=== PATIENT | female | born 1930 | race Caucasian/White ===

== ENCOUNTER 2018-01-25 11:14 | Inpatient (IN) | payer OTHER ==
[2018-01-25] MEDS ORDERED: Haloperidol Lactate 5 mg/mL 1mL Vial IM STA ×2 (11:28→13:57)
--- NOTE | 2018-01-25 11:34 | ED Physician Chart ---
ED Chief Complaint/HPI - Patient Information Date Seen:: 01/25/18 Time Seen:: 11:25 Chief Complaint:: Agitation History of Present Illness:: onset x 2 days of agitation and aggressive behavior; no report of trauma, SIs, LOC, AMS, ALOC, H/As, S/T, neck pain, C/P, SOB, Abd. Pain, A/N/V/D/C, fever, chills, or urinary s/s Historian:: Patient, Friend Review:: Nurse's Note Reviewed ED Review of Systems - Review of Systems General/Constitutional: No fever, No chills, No weight loss, No weakness, No diaphoresis, No edema, No loss of appetite Skin: No skin lesions, No rash, No bruising Head: No headache, No light-headedness Eyes: No loss of vision, No pain, No diplopia ENT: No earache, No nasal drainage, No sore throat, No tinnitus Neck: No neck pain, No swelling, No thyromegaly, No stiffness, No mass noted Cardio Vascular: No chest pain, No palpitations, No PND, No orthopnea, No edema Pulmonary: No SOB, No cough, No sputum, No wheezing GI: No nausea, No vomiting, No diarrhea, No pain, No melena, No hematochezia, No constipation, No hematemesis G/U: No dysuria, No frequency, No hematuria, No nacturia Office Support Clerk: No vaginal discharge, No abnormal vaginal bleed, No contraction Musculoskeletal: No bone or joint pain, No back pain, No muscle pain Endocrine: No polyuria, No polydipsia Psychiatric: Prior psych history, Depression, Anxiety, No suicidal ideation, No homicidal ideation, No auditory hallucination, No visual hallucination Hematopoietic: No bruising, No lymphadenopathy Allergic/Immuno: No urticaria, No angioedema Neurological: No syncope, No focal symptoms, No weakness, No paresthesia, No headache, No seizure, No dizziness, Confusion, No vertigo ED Past Medical History - Past Medical History Obtainable: Yes Past Medical History: HTN, Dyslipidemia Family History: HTN Social History: Non Smoker, No Alcohol, No Drug Use, , Lives Alone Surgical History: None Psychiatricy History: Depression, Bipolar, Dementia Medication: Reviewed Family Medical History - Family Member Mother History Unknown: Yes ED Physical Exam - Physical Examination General/Constitutional: Awake, Well-developed, well-nourished, Alert, No distress, GCS 15, Non-toxic appearing, Ambulatory Head: Atraumatic Eyes: Lids, conjuctiva normal, PERRL, EOMI Skin: Nl inspection, No rash, No skin lesions, No ecchymosis, Well hydrated, No lymphadenopathy ENMT: External ears, nose nl, TM canals nl, Nasal exam nl, Lips, teeth, gums nl , Oropharynx nl, Tonsils nl Neck: Nontender, Full ROM w/o pain, No JVD, No nuchal rigidity, No bruit, No mass, No stridor Respiratory: Nl effort/Exclusion, Clear to Auscultation, No Wheeze/Rhonchi/Rales Cardio Vascular: RRR, No murmur, gallop, rubs, NL S1 S2, Carotid/Femoral/Distal pulses equal bilaterally GI: No tenderness/rebounding/guarding, No organomegaly, No hernia, Normal BS's, Nondistended, No mass/bruits, No McBurney tenderness : No CVA tenderness Extremities: No tenderness or effusion, Full ROM, normal strength in all extremities, No edema, Normal digits & nails Neuro/Psych: Alert/oriented, DTR's symmetric, Normal sensory exam, Normal motor strength, Judgement/insight normal, Mood normal, Normal gait, No focal deficits Other Neuro/Psych comments:: Disoriented and Confused; + Psychomotor Agitation; no SIs; Mood/Affect: Labile Misc: Normal back, No paraspinal tenderness ED Labs/Radiology/EKG Results - Lab Results Comments:: Reviewed ED Septic Shock - . Is Septic Shock (SBP<90, OR Lactate>4 mmol\L) present?: No ED Reassessment (Disposition) - Reassessment Reassessment Condition:: Improved - Diagnosis Diagnosis:: Agitation; Psychosis; Medical Clearance; Dementia; Alzheimer's Disease - Aftercare/Follow up Instructions Aftercare/Follow-Up Instructions:: Counseled pt regarding lab results/diagnosis & need follow up, Counseled pt & family regarding lab results/diagnosis & need follow up - Patient Disposition Discharge/Transfer:: Acute Care w/in this hosp Accepting Physician:: Dr. Jaramillo Time Called:: 1330 Time Responded:: 13:30 Admitted to:: Med/Surg Spoke to:: Dr. Jaramillo Admitting Medical Physician:: Dr. Jaramillo Condition at Disposition:: Stable, Improved
[2018-01-25] MEDS ORDERED: Haloperidol Lactate 5 mg/mL 1mL Vial ONE ×2 (11:39→14:00)
[2018-01-25 12:51] LABS: % BASOPHILS 0.7 % (0.0-2.0); % EOSINOPHILS 0.8 % (0.0-5.0); % LYMPHOCYTES 19.2 % (20.0-50.0); % MONOCYTES 6.2 % (2.0-10.0); % NEUTROPHILS 73.1 % (40.0-80.0); BASOPHILE ABSOLUTE 0.1 Th/cumm (0-0.2); EOSINOPHILE ABSOLUTE 0.1 Th/cmm (0.1-0.4); HEMATOCRIT 39.5 % (41.0-60); HEMOGLOBIN 13.3 gm/dL (12-16); LYMPHOCYTE ABSOLUTE 1.5 Th/cmm (1.5-3.0); MEAN CELL VOLUME 91.1 fl (81-100); MEAN CORPUSCULAR HEMOGLOBIN 30.8 pg (27.0-31.0); MEAN CORPUSCULAR HGB CONC 33.8 pg (28.0-36.0); MEAN PLATELET VOLUME 8.9 fl; MONOCYTE ABSOLUTE 0.5 Th/cmm (0.3-1.0); NEUTROPHILE ABSOLUTE 5.4 Th/cmm (1.8-8.0); PLATELET COUNT 197 Th/cmm (150-400); RED BLOOD COUNT 4.34 Mil/cmm (3.80-5.20); RED CELL DISTRIBUTION WIDTH 13.1 % (11.5-20.0); WHITE BLOOD COUNT 7.6 Th/cmm (4.8-10.8)
[2018-01-25 13:19] LABS: ACETAMINOPHEN < 10.0 ug/mL (10.0-30.0); ALB/GLOB RATIO 1.4 (1.0-1.8); ALKALINE PHOSPHATASE 69 U/L (34-104); ANION GAP 11.5 (7.0-16.0); BILIRUBIN,TOTAL 0.7 mg/dL (0.3-1.0); BUN - UREA NITROGEN 15 mg/dL (7-25); CALCIUM SERUM 9.5 mg/dL (8.6-10.3); CARBON DIOXIDE 23.6 mEq/L (21.0-31.0); CHLORIDE 109 mEq/L (98-107); CHOLESTEROL 151 mg/dL (<200); CREATININE - SERUM 1.1 mg/dL (0.6-1.2); GLUCOSE 153 mg/dL (70-105); HDL -HIGH DENSITY LIPOPROTEIN 39 mg/dL (23-92); POTASSIUM SERUM 4.1 mEq/L (3.5-5.1); SALICYLATES (ASPIRIN) < 25.0 mg/L (30.0-100.0); SGOT 37 U/L (13-39); SGPT/ALT 20 U/L (7-52); SODIUM SERUM 140 mEq/L (136-145); TOTAL PROTEIN,SERUM 6.9 gm/dL (6.0-8.3); TRIGLYCERIDES 98 mg/dL (<150)
[2018-01-25] MEDS ORDERED: Maalox 30 mL Cup PO PRN (17:26)
[2018-01-25] MEDS ORDERED: Magnesium Hydroxide (MOM) 30 mL UDC PO PRN (17:26)
[2018-01-25 17:52] VITALS: BP 122/63
[2018-01-25 19:28] LABS: A1C % 6.2 % (4.0-6.0)
[2018-01-26] MEDS: Levothyroxine 0.1 Mg Tab PO SCH (08:55)
[2018-01-26] MEDS: Multivitamin Tab PO SCH (08:56)
--- NOTE | 2018-01-26 21:19 | History & Physical ---
ADMIT DATE: 01/25/2018 The patient was admitted to Geropsych Unit because of severe agitation. HISTORY OF PRESENT ILLNESS: Two-day-old history of problems including agitation and aggressive behavior. No history of trauma, no history of any other problem, was admitted to Geropsych Unit. REVIEW OF SYSTEMS: The patient has no system review. Otherwise, negative. PAST MEDICAL HISTORY: History of hypertension, hyperlipidemia. PHYSICAL EXAMINATION: GENERAL: Alert, oriented, aggressive female. HEAD: Normal. ENT: Normal. NECK: Supple, nontender. LUNGS: Clear. CARDIOVASCULAR SYSTEM: S1, S2 heard. ABDOMEN: Soft. Bowel sounds are heard. CENTRAL NERVOUS SYSTEM: The patient was disoriented, confused, and severe agitation. DIAGNOSES: Acute psychosis, history of hypertension, history of hyperlipidemia, history of dementia. PLAN: The patient is being admitted. I will follow the medical problems and Dr. [place] will follow the patient. JOB# [id number]
[2018-01-27] MEDS: Multivitamin Tab PO SCH (10:15)
[2018-01-27] MEDS: Levothyroxine 0.1 Mg Tab PO SCH (10:15)
--- NOTE | 2018-01-27 16:07 | General Progress Note ---
Subjective - Review of Systems Subjective: pt. is agitated, confused and has aggressive behavior Objective - Results Result Diagrams: 01/25/18 12:40 01/25/18 12:40 Recent Labs: Laboratory Last Values WBC 7.6 Th/cmm (4.8-10.8) 01/25/18 12:40 RBC 4.34 Mil/cmm (3.80-5.20) 01/25/18 12:40 Hgb 13.3 gm/dL (12-16) 01/25/18 12:40 Hct 39.5 % (41.0-60) L 01/25/18 12:40 MCV 91.1 fl (81-100) 01/25/18 12:40 MCH 30.8 pg (27.0-31.0) 01/25/18 12:40 MCHC Differential 33.8 pg (28.0-36.0) 01/25/18 12:40 RDW 13.1 % (11.5-20.0) 01/25/18 12:40 Plt Count 197 Th/cmm (150-400) 01/25/18 12:40 MPV 8.9 fl 01/25/18 12:40 Neutrophils % 73.1 % (40.0-80.0) 01/25/18 12:40 Lymphocytes % 19.2 % (20.0-50.0) L 01/25/18 12:40 Monocytes % 6.2 % (2.0-10.0) 01/25/18 12:40 Eosinophils % 0.8 % (0.0-5.0) 01/25/18 12:40 Basophils % 0.7 % (0.0-2.0) 01/25/18 12:40 Sodium 140 mEq/L (136-145) 01/25/18 12:40 Potassium 4.1 mEq/L (3.5-5.1) 01/25/18 12:40 Chloride 109 mEq/L (98-107) H 01/25/18 12:40 Carbon Dioxide 23.6 mEq/L (21.0-31.0) 01/25/18 12:40 Anion Gap 11.5 (7.0-16.0) 01/25/18 12:40 BUN 15 mg/dL (7-25) 01/25/18 12:40 Creatinine 1.1 mg/dL (0.6-1.2) 01/25/18 12:40 Est GFR ( Amer) TNP 01/25/18 12:40 Est GFR (Non-Af Amer) TNP 01/25/18 12:40 BUN/Creatinine Ratio 13.6 01/25/18 12:40 Glucose 153 mg/dL (70-105) H 01/25/18 12:40 Hemoglobin A1c % 6.2 % (4.0-6.0) H 01/25/18 12:40 Calcium 9.5 mg/dL (8.6-10.3) 01/25/18 12:40 Total Bilirubin 0.7 mg/dL (0.3-1.0) 01/25/18 12:40 AST 37 U/L (13-39) 01/25/18 12:40 ALT 20 U/L (7-52) 01/25/18 12:40 Alkaline Phosphatase 69 U/L (34-104) 01/25/18 12:40 Troponin I 0.01 ng/mL (0.01-0.05) 01/25/18 12:40 Total Protein 6.9 gm/dL (6.0-8.3) 01/25/18 12:40 Albumin 4.0 gm/dL (3.7-5.3) 01/25/18 12:40 Globulin 2.9 gm/dL 01/25/18 12:40 Albumin/Globulin Ratio 1.4 (1.0-1.8) 01/25/18 12:40 Triglycerides 98 mg/dL (<150) 01/25/18 12:40 Cholesterol 151 mg/dL (<200) 01/25/18 12:40 LDL Cholesterol Direct 96 mg/dL (75-193) 01/25/18 12:40 HDL Cholesterol 39 mg/dL (23-92) 01/25/18 12:40 TSH 1.22 uIU/ml (0.34-5.60) 01/25/18 12:40 Salicylates < 25.0 mg/L (30.0-100.0) L 01/25/18 12:40 Acetaminophen < 10.0 ug/mL (10.0-30.0) L 01/25/18 12:40 Ethyl Alcohol < 10 mg/dL (0-10) 01/25/18 12:40 - Physical Exam Vitals and I&O: Vital Signs Temp 98.7 F 01/26/18 20:20 Pulse 95 01/26/18 20:20 Resp 18 01/26/18 20:20 BP 134/91 01/26/18 20:20 Pulse Ox 97 01/26/18 20:20 Intake & Output 01/26/18 01/27/18 01/27/18 18:59 06:59 18:59 Intake Total 700 Balance 700 Intake: Oral 700 Other: # Voids 2 # Bowel Movements 0 Active Medications: Current Medications Acetaminophen (Tylenol) 650 mg PO Q4HR PRN PRN Reason: Mild Pain / Temp above 100 Stop: 03/26/18 17:25 Al Hydrox/Mg Hydrox/Simethicone (Maalox) 30 ml PO Q4HR PRN PRN Reason: GI DISTRESS Stop: 03/26/18 17:25 Levothyroxine Sodium (Synthroid) 0.1 mg PO DAILY ISRA Stop: 03/27/18 08:59 Last Admin: 01/27/18 10:15 Dose: 0.1 mg Lorazepam (Ativan) 0.5 mg PO Q4HR PRN; Protocol PRN Reason: Anxiety Stop: 02/24/18 17:25 Lorazepam (Ativan) 0.25 mg PO Q8HR PRN; Protocol PRN Reason: Agitation Stop: 03/27/18 20:33 Magnesium Hydroxide (Milk Of Magnesia) 30 ml PO HS PRN PRN Reason: Constipation Multivitamins/Vitamin C (Theragran) 1 tab PO DAILY ISRA Stop: 03/27/18 08:59 Last Admin: 01/27/18 10:15 Dose: 1 tab Quetiapine Fumarate (Seroquel) 50 mg PO BID ISRA; Protocol Stop: 03/27/18 19:59 Last Admin: 01/27/18 10:15 Dose: 50 mg Zolpidem Tartrate (Ambien) 5 mg PO HS PRN PRN Reason: Insomnia Stop: 03/26/18 17:25 General: Alert, Oriented x3, No acute distress HEENT: Atraumatic, PERRLA, EOMI Neck: Supple Cardiovascular: Regular rate Lungs: Clear to auscultation Abdomen: Bowel sounds Assessment/Plan - Assessment Assessment: acute psychosis HTN HLD Dementia - Plan Plan: cpm will monitor
[2018-01-28 08:51] LABS: % BASOPHILS 0.1 % (0.0-2.0); % EOSINOPHILS 0.4 % (0.0-5.0); % LYMPHOCYTES 9.2 % (20.0-50.0); % MONOCYTES 5.8 % (2.0-10.0); % NEUTROPHILS 84.5 % (40.0-80.0); HEMATOCRIT 45.4 % (41.0-60); HEMOGLOBIN 14.9 gm/dL (12-16); MEAN CELL VOLUME 91.1 fl (81-100); MEAN CORPUSCULAR HEMOGLOBIN 29.8 pg (27.0-31.0); MEAN CORPUSCULAR HGB CONC 32.8 pg (28.0-36.0); MEAN PLATELET VOLUME 9.5 fl; MONOCYTE ABSOLUTE 0.6 Th/cmm (0.3-1.0); NEUTROPHILE ABSOLUTE 9.2 Th/cmm (1.8-8.0); PLATELET COUNT 216 Th/cmm (150-400); RED BLOOD COUNT 4.99 Mil/cmm (3.80-5.20); RED CELL DISTRIBUTION WIDTH 13.2 % (11.5-20.0); WHITE BLOOD COUNT 10.8 Th/cmm (4.8-10.8)
[2018-01-28 09:01] LABS: ALB/GLOB RATIO 1.3 (1.0-1.8); ALBUMIN 4.1 gm/dL (3.7-5.3); ALKALINE PHOSPHATASE 74 U/L (34-104); ANION GAP 14.2 (7.0-16.0); BILIRUBIN,TOTAL 1.2 mg/dL (0.3-1.0); BUN - UREA NITROGEN 19 mg/dL (7-25); CALCIUM SERUM 9.5 mg/dL (8.6-10.3); CARBON DIOXIDE 22.6 mEq/L (21.0-31.0); CHLORIDE 106 mEq/L (98-107); CREATININE - SERUM 0.8 mg/dL (0.6-1.2); GLUCOSE 135 mg/dL (70-105); POTASSIUM SERUM 3.8 mEq/L (3.5-5.1); SGOT 58 U/L (13-39); SGPT/ALT 33 U/L (7-52); SODIUM SERUM 139 mEq/L (136-145); TOTAL PROTEIN,SERUM 7.3 gm/dL (6.0-8.3)
[2018-01-28] MEDS: Levothyroxine 0.1 Mg Tab PO SCH (10:05)
[2018-01-28] MEDS: Multivitamin Tab PO SCH (10:06)
--- NOTE | 2018-01-28 17:30 | Progress Notes ---
DATE: 01/28/[address] Zhong. This is an 87-year-old female who was admitted on 01/25/2018 because of psychosis. The patient is a poor historian. The patient is unable to participate in meaningful conversation or make safe plan for self-care. She is unpredictable, impulsive, internally preoccupied, compliant with the medication, no side effects to Remeron 7.5 mg at bedtime and Seroquel 50 mg twice a day with no side effects, no sedation, no nausea and then Remeron was added to her by Dr. Zhong and we will continue outpatient group therapy, milieu therapy, and adjust medication as needed. JOB# [id number]
--- NOTE | 2018-01-28 19:51 | Consultation ---
DATE OF CONSULTATION: 01/28/2018 REASON FOR CONSULTATION: Increased agitation and refusing to eat. REQUESTING PHYSICIAN: Dr. Jaramillo. HISTORY OF PRESENT ILLNESS: This is an 87-year-old female with dementia and history of psychosis who presents to the Geropsych Unit because of severe agitation. The patient has had several days of problems including agitation and aggressive behavior. She is currently very calm and has been refusing apparently to eat her food. She did actually start to eat some food today. She does not attest to why she is having any issues with eating. She is otherwise fairly somnolent and not responding to many questions. She has evidence of chocolate pudding that was eaten earlier today around her mouth. She is not cachectic and she is on the flip side morbidly obese. PAST MEDICAL HISTORY: History of hypertension and hyperlipidemia. PAST SURGICAL HISTORY: The patient has no system review otherwise negative. ALLERGIES: None known. FAMILY HISTORY: Unobtainable given current state. SOCIAL HISTORY: Unobtainable given current state. PHYSICAL EXAMINATION: GENERAL: She is alert and oriented. HEENT: Normocephalic, atraumatic. PERRLA positive. LUNGS: Clear bilaterally. No wheezes, rales, or rhonchi. ABDOMEN: Soft, obese, nontender. Bowel sounds were positive. EXTREMITIES: Show no lower extremity edema. LABORATORY DATA: Hemoglobin 14.9, white count of 10.8, and platelet count of 216. Chemistry panel was within normal limits. AST is 58, ALT is 33. IMAGING: Reviewed. ASSESSMENT AND PLAN: This is an 87-year-old female admitted to the Geropsych Unit for aggressive behavior. 1. Inability to eat well. 2. Psychosis and agitation. 3. Morbid obesity. We will continue to recommend treating the patient's underlying psychiatric condition and encouraged alongside with the nurses that the patient should continue to keep eating. She seems to have good family support, which is important in her overall prognosis. Would recommend continue with conservative management at this point. If the patient was starting to have severe protein-calorie malnutrition down the road, please ask for and consults with the family and we would be happy to consider PEG tube placement at that time. Do not foresee PEG tube placement; however, at this time and would just recommend continue with ongoing therapy. Thank you for this consultation. JOB# [id number]
--- NOTE | 2018-01-29 22:29 | Progress Notes ---
DATE: 01/27/2018 SUBJECTIVE: Chart reviewed and the patient interviewed. Also, discussed the patient's condition with the staff and reviewed records and labs. The patient is still confused and the patient is still agitated. The patient also still needs lots of redirections. The patient also is still little ____. She is still in angry mood. Otherwise, the patient is compliant with taking medications and the patient started on Seroquel with no side effects. ASSESSMENT: The patient is still agitated and confused and needs lots of redirections. TREATMENT PLAN: Continue to monitor her behavior closely. Also continue adjusting psychotropic medications. Also, discussed with his insurance company discharge plans and also placement issue. Also, we will continue to work on her behavior modification as well as placement issue. JOB# [id number]
--- NOTE | 2018-01-31 10:48 | Psychiatric Evaluation ---
DATE OF SERVICE: PSYCHIATRIC INITIAL EVALUATION AND MENTAL STATUS EXAMINATION AGE: 87. SEX: Female. PHYSICIAN: Liss Zhong M.D., M.P.H. CHIEF COMPLAINT: Agitation and irritability. HISTORY OF PRESENT ILLNESS: The patient is an 87-year-old female who has been under the care of Dr. Madison Avendano in [place]. The patient was sent to the hospital by Dr. Avendano and asked to be under my care. The patient came from her home. The patient has been easily agitated and confused and has been having disorganized thoughts. The patient also has been suspicious and ____ and agitated. The patient also ____. The patient also ____. The patient also has been aggressive and has been having difficulty following any of the directions. The patient has been having those problems that increased during the last 2 days prior to her admission. The patient claims to have history of dementia and forgetfulness ____. PAST PSYCHIATRIC HISTORY: The patient has history of ____ psychiatric issues. The patient is not taking any psychotropic medication at this time. PAST MEDICAL HISTORY: The patient has history of hypertension and ____. She has been under the care of Dr. Madison Avendano. The patient was medically cleared in the Emergency Room. FAMILY PSYCHIATRIC AND MEDICAL PROBLEMS: The patient has history of hypertension in the family. SOCIAL HISTORY: Reveals that the patient is and lives at home. ALLERGIES: No known allergies. MENTAL STATUS EXAMINATION: The patient appears her stated age. Anxious. Irritable mood. Seems to be suspicious and seems to be slightly paranoid. The patient did not answer questions regarding hallucinations or delusions, but seems to be actively responding and agitated and talking to self. The patient denied suicidal or homicidal ideations. The patient is alert, but she is confused and seems to be disoriented to time, place, person and situation. Impaired immediate and recent memory, but intact remote memory and she is able to remember her date. Poor insight and poor judgment. ASSESSMENT: PRIMARY DIAGNOSIS: Unspecified psychosis. SECONDARY DIAGNOSES: Dementia, moderate to severe, with psychosis and behavioral disturbances. MEDICAL DIAGNOSES: 1. Hypertension. 2. ____. TREATMENT PLAN: We will monitor the patient's behavior and condition closely. Also, we will start the patient on Seroquel and ____. ESTIMATED LENGTH OF STAY: 5-7 days. THE PATIENT'S STRENGTHS AND WEAKNESSES: The patient strengths are not clear at this time except that she seems to be in a relatively fair health. Weaknesses are ineffective coping and poor impulse control and her confusion and forgetfulness. AFTER DISCHARGE PLAN: The patient seems to be needed to be placed in a dementia unit. Outpatient treatment and followup will continue as outpatient. CRITERIA FOR DISCHARGE: The patient will not be as agitated or confused and will stabilize psychotropic medications and will establish placement and treatment plans. JOB# [id number]
== END 2018-01-28 23:17 | disposition short-term general hospital (02) | DRG 885 ==
LOC: ER 11:14 → EDBD 11:14 → GERO 16:01
PROVIDERS: ADMIT Psychiatry & Neurology Psychiatry; ATTEND Psychiatry & Neurology Psychiatry
DX: F23 Brief psychotic disorder (principal); F02.81 Dementia in other diseases classified elsewhere, unspecified severity, with behavioral disturbance; I10 Essential (primary) hypertension; E78.5 Hyperlipidemia, unspecified; F31.9 Bipolar disorder, unspecified; Z60.2 Problems related to living alone; R13.0 Aphagia; G30.9 Alzheimer's disease, unspecified; E66.01 Morbid (severe) obesity due to excess calories; Z68.27 Body mass index [BMI] 27.0-27.9, adult; Z82.49 Family history of ischemic heart disease and other diseases of the circulatory system
CPT/HCPCS: 36415-UA; 80053-TC; 80061-TC; 80320-TC; 80329-TC; 83036-90; 84443-TC; 84484-TC; 85025-TC; 86592-TC; J1200; J1630; J2060; Z7610

== ENCOUNTER 2018-01-28 23:00 | Inpatient (IN) | payer OTHER ==
[2018-01-29 01:17] VITALS: BP 154/78
[2018-01-29] MEDS: D5-0.45NS 1,000 ML IV SCH ×2 (06:44→17:47)
[2018-01-29 07:32] LABS: % BASOPHILS 0.8 % (0.0-2.0); % LYMPHOCYTES 12.1 % (20.0-50.0); % MONOCYTES 9.5 % (2.0-10.0); % NEUTROPHILS 76.6 % (40.0-80.0); BASOPHILE ABSOLUTE 0.1 Th/cumm (0-0.2); EOSINOPHILE ABSOLUTE 0.1 Th/cmm (0.1-0.4); HEMOGLOBIN 13.7 gm/dL (12-16); MEAN CELL VOLUME 89.6 fl (81-100); MEAN CORPUSCULAR HEMOGLOBIN 30.5 pg (27.0-31.0); MONOCYTE ABSOLUTE 0.8 Th/cmm (0.3-1.0); NEUTROPHILE ABSOLUTE 6.5 Th/cmm (1.8-8.0); PLATELET COUNT 199 Th/cmm (150-400); RED BLOOD COUNT 4.51 Mil/cmm (3.80-5.20)
[2018-01-29 07:41] LABS: HEMATOCRIT 40.4 % (41.0-60); WHITE BLOOD COUNT 8.5 Th/cmm (4.8-10.8)
[2018-01-29] MEDS ORDERED: Magnesium Hydroxide (MOM) 30 mL UDC PO PRN (07:46)
[2018-01-29] MEDS ORDERED: Maalox 30 mL Cup PO PRN (07:46)
[2018-01-29 07:52] LABS: ANION GAP 10.2 (7.0-16.0); BUN - UREA NITROGEN 20 mg/dL (7-25); CARBON DIOXIDE 24.2 mEq/L (21.0-31.0); CHLORIDE 111 mEq/L (98-107); CREATININE - SERUM 0.7 mg/dL (0.6-1.2); GLUCOSE 121 mg/dL (70-105); POTASSIUM SERUM 3.4 mEq/L (3.5-5.1); SODIUM SERUM 142 mEq/L (136-145)
[2018-01-29] MEDS: Levothyroxine 0.1 Mg Tab PO SCH (09:41)
[2018-01-29] MEDS: Multivitamin Tab PO SCH (09:41)
--- NOTE | 2018-01-29 10:23 | GI Progress Note ---
Subjective - Review of Systems Service Date: 01/29/18 Subjective: Pt appears to be refusing food Objective - Results Result Diagrams: 01/29/18 06:56 01/29/18 06:56 Recent Labs: Laboratory Last Values WBC 8.5 Th/cmm (4.8-10.8) D 01/29/18 06:56 RBC 4.51 Mil/cmm (3.80-5.20) 01/29/18 06:56 Hgb 13.7 gm/dL (12-16) 01/29/18 06:56 Hct 40.4 % (41.0-60) L D 01/29/18 06:56 MCV 89.6 fl (81-100) 01/29/18 06:56 MCH 30.5 pg (27.0-31.0) 01/29/18 06:56 MCHC Differential 34.0 pg (28.0-36.0) 01/29/18 06:56 RDW 13.0 % (11.5-20.0) 01/29/18 06:56 Plt Count 199 Th/cmm (150-400) 01/29/18 06:56 MPV 9.0 fl 01/29/18 06:56 Neutrophils % 76.6 % (40.0-80.0) 01/29/18 06:56 Lymphocytes % 12.1 % (20.0-50.0) L 01/29/18 06:56 Monocytes % 9.5 % (2.0-10.0) 01/29/18 06:56 Eosinophils % 1.0 % (0.0-5.0) 01/29/18 06:56 Basophils % 0.8 % (0.0-2.0) 01/29/18 06:56 Sodium 142 mEq/L (136-145) 01/29/18 06:56 Potassium 3.4 mEq/L (3.5-5.1) L 01/29/18 06:56 Chloride 111 mEq/L (98-107) H 01/29/18 06:56 Carbon Dioxide 24.2 mEq/L (21.0-31.0) 01/29/18 06:56 Anion Gap 10.2 (7.0-16.0) 01/29/18 06:56 BUN 20 mg/dL (7-25) 01/29/18 06:56 Creatinine 0.7 mg/dL (0.6-1.2) 01/29/18 06:56 Est GFR ( Amer) TNP 01/29/18 06:56 Est GFR (Non-Af Amer) TNP 01/29/18 06:56 BUN/Creatinine Ratio 28.6 01/29/18 06:56 Glucose 121 mg/dL (70-105) H 01/29/18 06:56 POC Glucose 137 MG/DL (70 - 105) H 01/29/18 05:20 Calcium 9.0 mg/dL (8.6-10.3) 01/29/18 06:56 - Physical Exam Vitals and I&O: Vital Signs Temp 97.7 F 01/29/18 08:08 Pulse 93 01/29/18 08:08 Resp 18 01/29/18 08:08 BP 135/63 01/29/18 08:08 Pulse Ox 89 01/29/18 08:08 Intake & Output 01/28/18 01/29/18 01/29/18 18:59 06:59 18:59 Intake Total 0 Output Total 1 Balance -1 Weight (lbs) 80.286 kg Intake: Oral 0 Output: Urine 1 Other: Weight Source Bedscale Active Medications: Current Medications Acetaminophen (Tylenol) 650 mg PO Q4HR PRN PRN Reason: Mild Pain / Temp above 100 Stop: 03/30/18 07:45 Al Hydrox/Mg Hydrox/Simethicone (Maalox) 30 ml PO Q4HR PRN PRN Reason: GI DISTRESS Stop: 03/30/18 07:45 Dextrose/Sodium Chloride (D5-0.45ns) 1,000 mls @ 100 mls/hr IV .Q10H ISRA Stop: 03/30/18 06:29 Last Admin: 01/29/18 06:44 Dose: 100 mls/hr Levothyroxine Sodium (Synthroid) 0.1 mg PO QDAC ISRA Stop: 03/30/18 08:59 Last Admin: 01/29/18 09:41 Dose: 0.1 mg Lorazepam (Ativan) 0.25 mg PO Q8HR PRN; Protocol PRN Reason: Agitation Stop: 03/30/18 07:45 Magnesium Hydroxide (Milk Of Magnesia) 30 ml PO HS PRN PRN Reason: Constipation Stop: 03/30/18 07:45 Mirtazapine (Remeron) 7.5 mg PO HS ISRA; Protocol Stop: 03/30/18 20:59 Multivitamins/Vitamin C (Theragran) 1 tab PO DAILY ISRA Stop: 03/30/18 08:59 Last Admin: 01/29/18 09:41 Dose: 1 tab Quetiapine Fumarate (Seroquel) 50 mg PO BID ISRA; Protocol Stop: 03/30/18 08:59 Zolpidem Tartrate (Ambien) 5 mg PO HS PRN PRN Reason: Insomnia Stop: 03/30/18 07:45 General: Mild distress HEENT: Atraumatic, EOMI Cardiovascular: Regular rate, Normal S1, Normal S2 Lungs: Clear to auscultation Abdomen: Bowel sounds Assessment/Plan - Assessment Assessment: 1. Psychosis 2. Refusal to eat 3. Nausea -Trial of Reglan -Swallow study tomorrow if does not eat today -WIll follow
--- NOTE | 2018-01-29 12:22 | History & Physical ---
ADMIT DATE: 01/29/2018 CHIEF COMPLAINT: Failure to thrive. HISTORY OF PRESENT ILLNESS: This is an 87-year-old female who was admitted originally from a psychiatric unit transferred to the medical unit due to failure to thrive and decreased urine output. REVIEW OF SYSTEMS: GENERAL: This is an 87-year-old female, appears as stated. Positive weakness. No fever. HEENT: Head: No headache. No dizziness. Eyes: No eye pain. No blurring of vision. NECK: No neck pain. No nuchal rigidity. CHEST: No chest pain. No palpitation. PULMONARY: No shortness of breath. No coughing. GASTROINTESTINAL: No diarrhea. No constipation. No abdominal pain. MUSCULOSKELETAL: No joint pain. No muscle pain. SOCIAL HISTORY: The patient lives in a detention facility prior to hospitalization. FAMILY HISTORY: Unremarkable. PAST SURGICAL HISTORY: Unremarkable. PAST MEDICAL HISTORY: Includes psychosis, hypertension, hypothyroidism. PHYSICAL EXAMINATION: VITAL SIGNS: Temperature 97.7, heart rate 93, blood pressure 135/63, respiration of 18, 97% on room air. HEENT: Head is atraumatic, normocephalic. Eyes: Bilateral conjunctivae are clear. Bilateral pupils equal, round and reactive. NECK: Supple. No JVD. CARDIOVASCULAR: S1 and S2, without murmur. PULMONARY: Clear to auscultation. GASTROINTESTINAL: Soft and nontender without guarding. Positive bowel sounds. MUSCULOSKELETAL: No clubbing. No cyanosis noted. ASSESSMENT: 1. Failure to thrive. 2. Hypertension. 3. Hypothyroidism. 4. Osteoarthritis. 5. Psychosis. PLAN: We will start IV fluids for the patient. We will consult with the GI and drier attendant. We will also do a swallow evaluation and we will do medication reconciliation accordingly. Treatment plans were discussed with the patient's nurse. Treatment plans were discussed with Dr. Jaramillo. JOB# [id number]
[2018-01-29] MEDS: Metoclopramide 5 mg/mL 2mL Vial IVP SCH ×2 (12:37→20:46)
[2018-01-29] MEDS ORDERED: Potassium Chloride 20 mEq ER Tab PO ONE (15:27)
--- NOTE | 2018-01-29 23:38 | Consultation ---
DATE OF CONSULTATION: 01/29/2018 REASON FOR CONSULTATION: For electrolyte imbalance and for fluid management. HISTORY OF PRESENT ILLNESS: This is an 87-year-old female with past medical history of psychosis who was admitted because of failure to thrive. A few days prior to transfer, the patient's oral intake had gradually declined while at [facility]. She had refused to eat and drink. A few hours prior to transfer, she became quite weak. Urine output had diminished. She was then transferred to [facility]. She had no history of nausea and vomiting, no diarrhea. No history of dysphagia. PAST MEDICAL HISTORY: 1. Psychosis. 2. Essential hypertension. 3. Hypothyroidism. CURRENT MEDICATIONS: She is currently on acetaminophen, clonidine, Synthroid, Ativan, metoclopramide, Remeron, multivitamins, quetiapine, and zolpidem. ALLERGIES: No known drug allergies. SOCIAL AND FAMILY HISTORY: I was not able to obtain directly from the patient because she is unable to comprehend my questions and not able to give adequate responses. REVIEW OF SYSTEMS: Again, I was not able to decipher this directly from the patient because of her current mental status. PHYSICAL EXAMINATION: GENERAL: The patient is awake, not in any form of distress. VITAL SIGNS: Blood pressure is 128/59, pulse 74, and temperature 97.9 degrees. SKIN: Good turgor, warm, no rash, no jaundice appreciated. HEENT: Head normocephalic, atraumatic. Eyes: Extraocular muscles intact. Pupils equal, round, reactive to light and accommodates. Anicteric sclerae. Pale conjunctivae. Nose: Midline nasal septum. Mouth: Dry mucosa. Poor dentition. NECK: Supple, no adenopathy, no thyromegaly, no bruits. Trachea palpated in the midline. CHEST AND CARDIOVASCULAR: S1, S2. No rub nor murmur appreciated. Point of maximal impulse fifth intercostal space, left midclavicular line. No abdominal or femoral bruits appreciated. LUNGS: Equal expansion, no use of accessory muscles. No supraclavicular retractions. Decreased breath sounds, clear to auscultation without any wheeze. ABDOMEN: Flat, soft, positive for bowel sounds. No bruits either diastolic or systolic. RECTAL: Lax sphincter tone. GENITOURINARY: Normal appearing female genitalia. MUSCULOSKELETAL: No effusions present in her joints, but unable to assess her range of motion. EXTREMITIES: No evidence of edema, cyanosis, nor clubbing with palpable femoral, popliteal, and dorsalis pedis pulses. NEUROLOGIC: As mentioned, the patient is awake, but nonverbal at the present time, so I was not able to pursue further my neuro exam. LABORATORY DATA AND STUDIES: Did reveal white count 8.5, hemoglobin 13.7, hematocrit 40.4, platelets 199, and polys 76.6%. Sodium 142, potassium 3.4, chloride 111, bicarbonate 24, BUN 20, creatinine 0.7, glucose 121, calcium 9. IMPRESSION: 1. Hypokalemia. 2. Psychosis. 3. Failure to thrive with the diminished oral intake. 4. Essential hypertension. 5. Hypothyroidism. 6. Low urine output, likely secondary to failure to thrive. PLAN: 1. Urinalysis. 2. Urine spot sodium. 3. Renal/bladder ultrasound. 4. Initiate IV hydration. 5. Replace potassium. 6. Follow up electrolytes and magnesium. 7. Encourage p.o. intake, both solids and liquids. 8. Continue with psych meds. Thank you, Dr. Jaramillo for this consult. We will follow the patient closely with you. JOB# [id number]
[2018-01-30] MEDS: D5-0.45NS 1,000 ML IV SCH ×3 (03:58→13:22)
[2018-01-30] MEDS: Metoclopramide 5 mg/mL 2mL Vial IVP SCH ×3 (04:41→21:55)
[2018-01-30] MEDS: Levothyroxine 0.1 Mg Tab PO SCH (08:05)
[2018-01-30 08:20] LABS: ALB/GLOB RATIO 1.2 (1.0-1.8); ALBUMIN 3.3 gm/dL (3.7-5.3); ALKALINE PHOSPHATASE 58 U/L (34-104); ANION GAP 10.8 (7.0-16.0); BILIRUBIN,TOTAL 1.3 mg/dL (0.3-1.0); BUN - UREA NITROGEN 13 mg/dL (7-25); CALCIUM SERUM 8.7 mg/dL (8.6-10.3); CARBON DIOXIDE 23.5 mEq/L (21.0-31.0); CHLORIDE 107 mEq/L (98-107); CREATININE - SERUM 0.6 mg/dL (0.6-1.2); GLUCOSE 168 mg/dL (70-105); MAGNESIUM 1.8 mg/dL (1.9-2.7); POTASSIUM SERUM 3.3 mEq/L (3.5-5.1); SGOT 42 U/L (13-39); SGPT/ALT 30 U/L (7-52); SODIUM SERUM 138 mEq/L (136-145); TOTAL PROTEIN,SERUM 6.1 gm/dL (6.0-8.3); URIC ACID 4.7 mg/dL (2.3-6.6)
[2018-01-30] MEDS: Multivitamin Tab PO SCH (09:45)
--- NOTE | 2018-01-30 10:02 | Diagnostic Imaging Report ---
Exam: Ultrasound summation kidneys. HISTORY: Decreased output Findings: Real-time ultrasound exam of the kidneys performed multiple planes. The study extremely limited. The right kidney measures 9.5 x 3.5 x 4.7 cm. The left kidney measures 10.6 x 4 x 4.4 cm. Grossly there is no evidence of obstructive uropathy or nephrolithiasis. The uterine bladder is distended with the patient unable to void. IMPRESSION: Extremely limited examination of kidneys due to patient body habitus. No evidence of obstructive uropathy or nephrolithiasis. Distended urinary bladder patient is not able to void spontaneously Clinical correlation recommended.
--- NOTE | 2018-01-30 11:41 | General Progress Note ---
Subjective - Review of Systems Events since last encounter: patient admitted with failure to thrive patient awake and alert Objective - Results Result Diagrams: 01/29/18 06:56 01/30/18 07:40 Recent Labs: Laboratory Last Values WBC 8.5 Th/cmm (4.8-10.8) D 01/29/18 06:56 RBC 4.51 Mil/cmm (3.80-5.20) 01/29/18 06:56 Hgb 13.7 gm/dL (12-16) 01/29/18 06:56 Hct 40.4 % (41.0-60) L D 01/29/18 06:56 MCV 89.6 fl (81-100) 01/29/18 06:56 MCH 30.5 pg (27.0-31.0) 01/29/18 06:56 MCHC Differential 34.0 pg (28.0-36.0) 01/29/18 06:56 RDW 13.0 % (11.5-20.0) 01/29/18 06:56 Plt Count 199 Th/cmm (150-400) 01/29/18 06:56 MPV 9.0 fl 01/29/18 06:56 Neutrophils % 76.6 % (40.0-80.0) 01/29/18 06:56 Lymphocytes % 12.1 % (20.0-50.0) L 01/29/18 06:56 Monocytes % 9.5 % (2.0-10.0) 01/29/18 06:56 Eosinophils % 1.0 % (0.0-5.0) 01/29/18 06:56 Basophils % 0.8 % (0.0-2.0) 01/29/18 06:56 Sodium 138 mEq/L (136-145) 01/30/18 07:40 Potassium 3.3 mEq/L (3.5-5.1) L 01/30/18 07:40 Chloride 107 mEq/L (98-107) 01/30/18 07:40 Carbon Dioxide 23.5 mEq/L (21.0-31.0) 01/30/18 07:40 Anion Gap 10.8 (7.0-16.0) 01/30/18 07:40 BUN 13 mg/dL (7-25) 01/30/18 07:40 Creatinine 0.6 mg/dL (0.6-1.2) 01/30/18 07:40 Est GFR ( Amer) TNP 01/30/18 07:40 Est GFR (Non-Af Amer) TNP 01/30/18 07:40 BUN/Creatinine Ratio 21.7 01/30/18 07:40 Glucose 168 mg/dL (70-105) H 01/30/18 07:40 POC Glucose 137 MG/DL (70 - 105) H 01/29/18 05:20 Uric Acid 4.7 mg/dL (2.3-6.6) 01/30/18 07:40 Calcium 8.7 mg/dL (8.6-10.3) 01/30/18 07:40 Magnesium 1.8 mg/dL (1.9-2.7) L 01/30/18 07:40 Total Bilirubin 1.3 mg/dL (0.3-1.0) H 01/30/18 07:40 AST 42 U/L (13-39) H 01/30/18 07:40 ALT 30 U/L (7-52) 01/30/18 07:40 Alkaline Phosphatase 58 U/L (34-104) 01/30/18 07:40 Total Protein 6.1 gm/dL (6.0-8.3) 01/30/18 07:40 Albumin 3.3 gm/dL (3.7-5.3) L 01/30/18 07:40 Globulin 2.8 gm/dL 01/30/18 07:40 Albumin/Globulin Ratio 1.2 (1.0-1.8) 01/30/18 07:40 Prealbumin 11 mg/dL (9-32) 01/29/18 06:56 - Physical Exam Vitals and I&O: Vital Signs Temp 98.8 F 01/30/18 08:05 Pulse 75 01/30/18 08:05 Resp 18 01/30/18 08:05 BP 160/74 01/30/18 08:05 Pulse Ox 95 01/30/18 08:05 Intake & Output 01/29/18 01/30/18 01/30/18 18:59 06:59 18:59 Intake Total 1080 1000 Balance 1080 1000 Weight (lbs) 80.286 kg 80.286 kg Intake: Intake, IV Amount 1000 1000 D5-0.45NS 1,000 ml @ 100 1000 1000 mls/hr IV .Q10H ISRA Rx#: [id number] Oral 80 Other: # Voids 2 2 # Bowel Movements 0 0 Weight Source Bedscale Bedscale Active Medications: Current Medications Acetaminophen (Tylenol) 650 mg PO Q4HR PRN PRN Reason: Mild Pain / Temp above 100 Stop: 03/30/18 07:45 Al Hydrox/Mg Hydrox/Simethicone (Maalox) 30 ml PO Q4HR PRN PRN Reason: GI DISTRESS Stop: 03/30/18 07:45 Dextrose/Sodium Chloride (D5-0.45ns) 1,000 mls @ 100 mls/hr IV .Q10H ISRA Stop: 03/30/18 06:29 Last Admin: 01/30/18 03:58 Dose: 100 mls/hr Levothyroxine Sodium (Synthroid) 0.1 mg PO QDAC ISRA Stop: 03/30/18 08:59 Last Admin: 01/30/18 08:05 Dose: 0.1 mg Lorazepam (Ativan) 0.25 mg PO Q8HR PRN; Protocol PRN Reason: Agitation Stop: 03/30/18 07:45 Last Admin: 01/30/18 09:40 Dose: 0.25 mg Magnesium Hydroxide (Milk Of Magnesia) 30 ml PO HS PRN PRN Reason: Constipation Stop: 03/30/18 07:45 Metoclopramide HCl (Reglan) 5 mg IVP Q8HR ISRA Stop: 03/30/18 12:59 Last Admin: 01/30/18 04:41 Dose: 5 mg Mirtazapine (Remeron) 7.5 mg PO HS ISRA; Protocol Stop: 03/30/18 20:59 Last Admin: 01/29/18 20:45 Dose: 7.5 mg Multivitamins/Vitamin C (Theragran) 1 tab PO DAILY ISRA Stop: 03/30/18 08:59 Last Admin: 01/30/18 09:45 Dose: 1 tab Quetiapine Fumarate (Seroquel) 50 mg PO BID ISRA; Protocol Stop: 03/30/18 08:59 Last Admin: 01/30/18 09:45 Dose: 50 mg Zolpidem Tartrate (Ambien) 5 mg PO HS PRN PRN Reason: Insomnia Stop: 03/30/18 07:45 General: Mild distress HEENT: Atraumatic, EOMI Cardiovascular: Regular rate, Normal S1, Normal S2 Lungs: Clear to auscultation Abdomen: Bowel sounds Nutritional Asmnt/Malnutr-PDOC - Dietary Evaluation Malnutrition Findings (Please click <Entered> for more info): Nutritional Asmnt/Malnutrition Start: 01/29/18 13: 31 Text: Status: Complete Freq: Protocol: Document 01/29/18 13:31 ELOISA (Rec: 01/29/18 13:36 ELOISA MATEUSZ- [email or web address]) Nutritional Asmnt/Malnutrition Patient General Information Diagnosis failure to thrive, Pertinent Medical Hx/Surgical Hx no H&P completed as of 01/29 @ 1331 Subjective Information Pt sitting up in bed did not answer RD questions at time of visit Current Diet Order/ Nutrition Support regular Pertinent Medications maalox, D51/2NS @100ml/hr (2. 4L/day 408kcals/day), synthroid, MOM, theragran Pertinent Labs 01/29: Na 142, K 3.4, Cl 111, CO2 24.2, BUN 20, Cr 0.7, Ca 9 .0 Nutritional Hx/Data Height 1.63 m Height (Calculated Centimeters) 162.6 Current Weight (lbs) 80.286 kg Weight (Calculated Kilograms) 80.3 Weight (Calculated Grams) 61774.8 Body Mass Index (BMI) 30.4 Weight Status Obese GI Symptoms GI Symptoms None Cultural/Ethnic/Lutheran Belief unknown Usual diet at home regular Skin Integrity/Comment: diaz score 15 Estimated Nutritional Goals BEE in Kcals: Using Current wt Calories/Kcals/Kg 25-28kcals/kg Kcals Calculated 1999-2240kcals/day Protein: Using Current wt Protein g/kg/kg Protein Calculated 80g/day Fluid: ml per MD Nutritional Problem 1. Problem Problem No nutrition diagnosis at this time Intervention/Recommendation Comments Recommend continuing Regular diet Consider appetite stimulant to help with PO intake Recommend if PO intake continues to be low, NGT placement for enteral nutrition Expected Outcomes/Goals Expected Outcomes/Goals PO Intake >75% of meals
--- NOTE | 2018-01-30 12:27 | GI Progress Note ---
Subjective - Review of Systems Service Date: 01/30/18 Subjective: Pt appears to be refusing food Objective - Results Result Diagrams: 01/29/18 06:56 01/30/18 07:40 Recent Labs: Laboratory Last Values WBC 8.5 Th/cmm (4.8-10.8) D 01/29/18 06:56 RBC 4.51 Mil/cmm (3.80-5.20) 01/29/18 06:56 Hgb 13.7 gm/dL (12-16) 01/29/18 06:56 Hct 40.4 % (41.0-60) L D 01/29/18 06:56 MCV 89.6 fl (81-100) 01/29/18 06:56 MCH 30.5 pg (27.0-31.0) 01/29/18 06:56 MCHC Differential 34.0 pg (28.0-36.0) 01/29/18 06:56 RDW 13.0 % (11.5-20.0) 01/29/18 06:56 Plt Count 199 Th/cmm (150-400) 01/29/18 06:56 MPV 9.0 fl 01/29/18 06:56 Neutrophils % 76.6 % (40.0-80.0) 01/29/18 06:56 Lymphocytes % 12.1 % (20.0-50.0) L 01/29/18 06:56 Monocytes % 9.5 % (2.0-10.0) 01/29/18 06:56 Eosinophils % 1.0 % (0.0-5.0) 01/29/18 06:56 Basophils % 0.8 % (0.0-2.0) 01/29/18 06:56 Sodium 138 mEq/L (136-145) 01/30/18 07:40 Potassium 3.3 mEq/L (3.5-5.1) L 01/30/18 07:40 Chloride 107 mEq/L (98-107) 01/30/18 07:40 Carbon Dioxide 23.5 mEq/L (21.0-31.0) 01/30/18 07:40 Anion Gap 10.8 (7.0-16.0) 01/30/18 07:40 BUN 13 mg/dL (7-25) 01/30/18 07:40 Creatinine 0.6 mg/dL (0.6-1.2) 01/30/18 07:40 Est GFR ( Amer) TNP 01/30/18 07:40 Est GFR (Non-Af Amer) TNP 01/30/18 07:40 BUN/Creatinine Ratio 21.7 01/30/18 07:40 Glucose 168 mg/dL (70-105) H 01/30/18 07:40 POC Glucose 137 MG/DL (70 - 105) H 01/29/18 05:20 Uric Acid 4.7 mg/dL (2.3-6.6) 01/30/18 07:40 Calcium 8.7 mg/dL (8.6-10.3) 01/30/18 07:40 Magnesium 1.8 mg/dL (1.9-2.7) L 01/30/18 07:40 Total Bilirubin 1.3 mg/dL (0.3-1.0) H 01/30/18 07:40 AST 42 U/L (13-39) H 01/30/18 07:40 ALT 30 U/L (7-52) 01/30/18 07:40 Alkaline Phosphatase 58 U/L (34-104) 01/30/18 07:40 Total Protein 6.1 gm/dL (6.0-8.3) 01/30/18 07:40 Albumin 3.3 gm/dL (3.7-5.3) L 01/30/18 07:40 Globulin 2.8 gm/dL 01/30/18 07:40 Albumin/Globulin Ratio 1.2 (1.0-1.8) 01/30/18 07:40 Prealbumin 11 mg/dL (9-32) 01/29/18 06:56 - Physical Exam Vitals and I&O: Vital Signs Temp 98.5 F 01/30/18 12:23 Pulse 81 01/30/18 12:23 Resp 18 01/30/18 12:23 BP 158/70 01/30/18 12:23 Pulse Ox 96 01/30/18 12:23 Intake & Output 01/29/18 01/30/18 01/30/18 18:59 06:59 18:59 Intake Total 1080 1000 Balance 1080 1000 Weight (lbs) 80.286 kg 80.286 kg Intake: Intake, IV Amount 1000 1000 D5-0.45NS 1,000 ml @ 100 1000 1000 mls/hr IV .Q10H ISRA Rx#: [id number] Oral 80 Other: # Voids 2 2 # Bowel Movements 0 0 Weight Source Bedscale Bedscale Active Medications: Current Medications Acetaminophen (Tylenol) 650 mg PO Q4HR PRN PRN Reason: Mild Pain / Temp above 100 Stop: 03/30/18 07:45 Al Hydrox/Mg Hydrox/Simethicone (Maalox) 30 ml PO Q4HR PRN PRN Reason: GI DISTRESS Stop: 03/30/18 07:45 Dextrose/Sodium Chloride (D5-0.45ns) 1,000 mls @ 100 mls/hr IV .Q10H ISRA Stop: 03/30/18 06:29 Last Admin: 01/30/18 03:58 Dose: 100 mls/hr Levothyroxine Sodium (Synthroid) 0.1 mg PO QDAC ISRA Stop: 03/30/18 08:59 Last Admin: 01/30/18 08:05 Dose: 0.1 mg Lorazepam (Ativan) 0.25 mg PO Q8HR PRN; Protocol PRN Reason: Agitation Stop: 03/30/18 07:45 Last Admin: 01/30/18 09:40 Dose: 0.25 mg Magnesium Hydroxide (Milk Of Magnesia) 30 ml PO HS PRN PRN Reason: Constipation Stop: 03/30/18 07:45 Metoclopramide HCl (Reglan) 5 mg IVP Q8HR ISRA Stop: 03/30/18 12:59 Last Admin: 01/30/18 04:41 Dose: 5 mg Mirtazapine (Remeron) 7.5 mg PO HS ISRA; Protocol Stop: 03/30/18 20:59 Last Admin: 01/29/18 20:45 Dose: 7.5 mg Multivitamins/Vitamin C (Theragran) 1 tab PO DAILY ISRA Stop: 03/30/18 08:59 Last Admin: 01/30/18 09:45 Dose: 1 tab Quetiapine Fumarate (Seroquel) 50 mg PO BID ISRA; Protocol Stop: 03/30/18 08:59 Last Admin: 01/30/18 09:45 Dose: 50 mg Zolpidem Tartrate (Ambien) 5 mg PO HS PRN PRN Reason: Insomnia Stop: 03/30/18 07:45 General: Mild distress HEENT: Atraumatic, EOMI Cardiovascular: Regular rate, Normal S1, Normal S2 Lungs: Clear to auscultation Abdomen: Bowel sounds Assessment/Plan - Assessment Assessment: 1. Psychosis 2. Refusal to eat 3. Nausea -Trial of Reglan -Swallow study -WIll follow
--- NOTE | 2018-01-30 13:02 | General Progress Note ---
Subjective - Review of Systems Service Date: 01/30/18 Subjective: sleeping, arousable, still refusing to eat & drink Objective - Results Result Diagrams: 01/29/18 06:56 01/30/18 07:40 Recent Labs: Laboratory Last Values WBC 8.5 Th/cmm (4.8-10.8) D 01/29/18 06:56 RBC 4.51 Mil/cmm (3.80-5.20) 01/29/18 06:56 Hgb 13.7 gm/dL (12-16) 01/29/18 06:56 Hct 40.4 % (41.0-60) L D 01/29/18 06:56 MCV 89.6 fl (81-100) 01/29/18 06:56 MCH 30.5 pg (27.0-31.0) 01/29/18 06:56 MCHC Differential 34.0 pg (28.0-36.0) 01/29/18 06:56 RDW 13.0 % (11.5-20.0) 01/29/18 06:56 Plt Count 199 Th/cmm (150-400) 01/29/18 06:56 MPV 9.0 fl 01/29/18 06:56 Neutrophils % 76.6 % (40.0-80.0) 01/29/18 06:56 Lymphocytes % 12.1 % (20.0-50.0) L 01/29/18 06:56 Monocytes % 9.5 % (2.0-10.0) 01/29/18 06:56 Eosinophils % 1.0 % (0.0-5.0) 01/29/18 06:56 Basophils % 0.8 % (0.0-2.0) 01/29/18 06:56 Sodium 138 mEq/L (136-145) 01/30/18 07:40 Potassium 3.3 mEq/L (3.5-5.1) L 01/30/18 07:40 Chloride 107 mEq/L (98-107) 01/30/18 07:40 Carbon Dioxide 23.5 mEq/L (21.0-31.0) 01/30/18 07:40 Anion Gap 10.8 (7.0-16.0) 01/30/18 07:40 BUN 13 mg/dL (7-25) 01/30/18 07:40 Creatinine 0.6 mg/dL (0.6-1.2) 01/30/18 07:40 Est GFR ( Amer) TNP 01/30/18 07:40 Est GFR (Non-Af Amer) TNP 01/30/18 07:40 BUN/Creatinine Ratio 21.7 01/30/18 07:40 Glucose 168 mg/dL (70-105) H 01/30/18 07:40 POC Glucose 137 MG/DL (70 - 105) H 01/29/18 05:20 Uric Acid 4.7 mg/dL (2.3-6.6) 01/30/18 07:40 Calcium 8.7 mg/dL (8.6-10.3) 01/30/18 07:40 Magnesium 1.8 mg/dL (1.9-2.7) L 01/30/18 07:40 Total Bilirubin 1.3 mg/dL (0.3-1.0) H 01/30/18 07:40 AST 42 U/L (13-39) H 01/30/18 07:40 ALT 30 U/L (7-52) 01/30/18 07:40 Alkaline Phosphatase 58 U/L (34-104) 01/30/18 07:40 Total Protein 6.1 gm/dL (6.0-8.3) 01/30/18 07:40 Albumin 3.3 gm/dL (3.7-5.3) L 01/30/18 07:40 Globulin 2.8 gm/dL 01/30/18 07:40 Albumin/Globulin Ratio 1.2 (1.0-1.8) 01/30/18 07:40 Prealbumin 11 mg/dL (9-32) 01/29/18 06:56 - Physical Exam Vitals and I&O: Vital Signs Temp 98.5 F 01/30/18 12:23 Pulse 81 01/30/18 12:23 Resp 18 01/30/18 12:23 BP 158/70 01/30/18 12:23 Pulse Ox 96 01/30/18 12:23 Intake & Output 01/29/18 01/30/18 01/30/18 18:59 06:59 18:59 Intake Total 1080 1000 Balance 1080 1000 Weight (lbs) 80.286 kg 80.286 kg Intake: Intake, IV Amount 1000 1000 D5-0.45NS 1,000 ml @ 100 1000 1000 mls/hr IV .Q10H ISRA Rx#: [id number] Oral 80 Other: # Voids 2 2 # Bowel Movements 0 0 Weight Source Bedscale Bedscale Active Medications: Current Medications Acetaminophen (Tylenol) 650 mg PO Q4HR PRN PRN Reason: Mild Pain / Temp above 100 Stop: 03/30/18 07:45 Al Hydrox/Mg Hydrox/Simethicone (Maalox) 30 ml PO Q4HR PRN PRN Reason: GI DISTRESS Stop: 03/30/18 07:45 Dextrose/Sodium Chloride (D5-0.45ns) 1,000 mls @ 100 mls/hr IV .Q10H ISRA Stop: 03/30/18 06:29 Last Admin: 01/30/18 03:58 Dose: 100 mls/hr Levothyroxine Sodium (Synthroid) 0.1 mg PO QDAC ISRA Stop: 03/30/18 08:59 Last Admin: 01/30/18 08:05 Dose: 0.1 mg Lorazepam (Ativan) 0.25 mg PO Q8HR PRN; Protocol PRN Reason: Agitation Stop: 03/30/18 07:45 Last Admin: 01/30/18 09:40 Dose: 0.25 mg Magnesium Hydroxide (Milk Of Magnesia) 30 ml PO HS PRN PRN Reason: Constipation Stop: 03/30/18 07:45 Metoclopramide HCl (Reglan) 5 mg IVP Q8HR ISRA Stop: 03/30/18 12:59 Last Admin: 01/30/18 04:41 Dose: 5 mg Mirtazapine (Remeron) 7.5 mg PO HS ISRA; Protocol Stop: 03/30/18 20:59 Last Admin: 01/29/18 20:45 Dose: 7.5 mg Multivitamins/Vitamin C (Theragran) 1 tab PO DAILY ISRA Stop: 03/30/18 08:59 Last Admin: 01/30/18 09:45 Dose: 1 tab Quetiapine Fumarate (Seroquel) 50 mg PO BID ISRA; Protocol Stop: 03/30/18 08:59 Last Admin: 01/30/18 09:45 Dose: 50 mg Zolpidem Tartrate (Ambien) 5 mg PO HS PRN PRN Reason: Insomnia Stop: 03/30/18 07:45 General: No acute distress HEENT: Atraumatic, EOMI, Mucous membr. moist/pink Neck: Supple, +2 carotid pulse wo bruit Cardiovascular: Regular rate, Normal S1, Normal S2 Lungs: Clear to auscultation Abdomen: Bowel sounds Extremities: no Edema Neurological: Sensation intact Skin: no Rash Psych/Mental Status: Mood NL Assessment/Plan - Assessment Assessment: HYpokalemia Hypomagnesemia Psychosis FTT Ess Htn hypothyroid - Plan Plan: Lab - Result Diagrams 01/29/18 06:56 01/30/18 07:40 Current Medications Acetaminophen (Tylenol) 650 mg PO Q4HR PRN PRN Reason: Mild Pain / Temp above 100 Stop: 03/30/18 07:45 Al Hydrox/Mg Hydrox/Simethicone (Maalox) 30 ml PO Q4HR PRN PRN Reason: GI DISTRESS Stop: 03/30/18 07:45 Dextrose/Sodium Chloride (D5-0.45ns) 1,000 mls @ 100 mls/hr IV .Q10H ISRA Stop: 03/30/18 06:29 Last Admin: 01/30/18 03:58 Dose: 100 mls/hr Levothyroxine Sodium (Synthroid) 0.1 mg PO QDAC ISRA Stop: 03/30/18 08:59 Last Admin: 01/30/18 08:05 Dose: 0.1 mg Lorazepam (Ativan) 0.25 mg PO Q8HR PRN; Protocol PRN Reason: Agitation Stop: 03/30/18 07:45 Last Admin: 01/30/18 09:40 Dose: 0.25 mg Magnesium Hydroxide (Milk Of Magnesia) 30 ml PO HS PRN PRN Reason: Constipation Stop: 03/30/18 07:45 Metoclopramide HCl (Reglan) 5 mg IVP Q8HR ISRA Stop: 03/30/18 12:59 Last Admin: 01/30/18 04:41 Dose: 5 mg Mirtazapine (Remeron) 7.5 mg PO HS ISRA; Protocol Stop: 03/30/18 20:59 Last Admin: 01/29/18 20:45 Dose: 7.5 mg Multivitamins/Vitamin C (Theragran) 1 tab PO DAILY ISRA Stop: 03/30/18 08:59 Last Admin: 01/30/18 09:45 Dose: 1 tab Quetiapine Fumarate (Seroquel) 50 mg PO BID ISRA; Protocol Stop: 03/30/18 08:59 Last Admin: 01/30/18 09:45 Dose: 50 mg Zolpidem Tartrate (Ambien) 5 mg PO HS PRN PRN Reason: Insomnia Stop: 03/30/18 07:45 Lab - Result Diagrams 01/29/18 06:56 01/30/18 07:40 K still low @ 3.3 Mg low @ 1.8 replace K, Mg decrease IVF f/u electrolytes, aldosterone, TSH calorie count, may need another route of feeding Nutritional Asmnt/Malnutr-PDOC - Dietary Evaluation Malnutrition Findings (Please click <Entered> for more info): Nutritional Asmnt/Malnutrition Start: 01/29/18 13: 31 Text: Status: Complete Freq: Protocol: Document 01/29/18 13:31 ELOISA (Rec: 01/29/18 13:36 ELOISA MATEUSZ- FNS1) Nutritional Asmnt/Malnutrition Patient General Information Diagnosis failure to thrive, Pertinent Medical Hx/Surgical Hx no H&P completed as of 01/29 @ 1331 Subjective Information Pt sitting up in bed did not answer RD questions at time of visit Current Diet Order/ Nutrition Support regular Pertinent Medications maalox, D51/2NS @100ml/hr (2. 4L/day 408kcals/day), synthroid, MOM, theragran Pertinent Labs 01/29: Na 142, K 3.4, Cl 111, CO2 24.2, BUN 20, Cr 0.7, Ca 9 .0 Nutritional Hx/Data Height 1.63 m Height (Calculated Centimeters) 162.6 Current Weight (lbs) 80.286 kg Weight (Calculated Kilograms) 80.3 Weight (Calculated Grams) 14102.8 Body Mass Index (BMI) 30.4 Weight Status Obese GI Symptoms GI Symptoms None Cultural/Ethnic/Uatsdin Belief unknown Usual diet at home regular Skin Integrity/Comment: diaz score 15 Estimated Nutritional Goals BEE in Kcals: Using Current wt Calories/Kcals/Kg 25-28kcals/kg Kcals Calculated 2000-2240kcals/day Protein: Using Current wt Protein g/kg/kg Protein Calculated 80g/day Fluid: ml per MD Nutritional Problem 1. Problem Problem No nutrition diagnosis at this time Intervention/Recommendation Comments Recommend continuing Regular diet Consider appetite stimulant to help with PO intake Recommend if PO intake continues to be low, NGT placement for enteral nutrition Expected Outcomes/Goals Expected Outcomes/Goals PO Intake >75% of meals
[2018-01-30] MEDS ORDERED: Mag Sulfate 2gm/50mL Premix 2 GM/50 ML BAG IV ONE (13:07)
[2018-01-31] MEDS: D5-0.45NS 1,000 ML IV SCH (03:00)
[2018-01-31] MEDS: Metoclopramide 5 mg/mL 2mL Vial IVP SCH ×3 (05:33→22:16)
[2018-01-31 05:36] LABS: ANION GAP 9.9 (7.0-16.0); BUN - UREA NITROGEN 12 mg/dL (7-25); CALCIUM SERUM 8.1 mg/dL (8.6-10.3); CARBON DIOXIDE 21.4 mEq/L (21.0-31.0); CHLORIDE 108 mEq/L (98-107); CREATININE - SERUM 0.7 mg/dL (0.6-1.2); GLUCOSE 134 mg/dL (70-105); MAGNESIUM 2.2 mg/dL (1.9-2.7); POTASSIUM SERUM 3.3 mEq/L (3.5-5.1); SODIUM SERUM 136 mEq/L (136-145)
[2018-01-31] MEDS ORDERED: Potassium Chloride 20 MEQ, Lidocaine 1% 20mL Vial 25 MG in Sodium Chloride 0.9% 250 ML IV ONE (08:05)
[2018-01-31] MEDS: Levothyroxine 0.1 Mg Tab PO SCH (08:15)
[2018-01-31] MEDS: Multivitamin Tab PO SCH (08:47)
--- NOTE | 2018-01-31 14:03 | GI Progress Note ---
Subjective - Review of Systems Service Date: 01/31/18 Subjective: Pt trying to eat today, feels better overall. More communicative. Objective - Results Result Diagrams: 01/29/18 06:56 01/31/18 04:50 Recent Labs: Laboratory Last Values WBC 8.5 Th/cmm (4.8-10.8) D 01/29/18 06:56 RBC 4.51 Mil/cmm (3.80-5.20) 01/29/18 06:56 Hgb 13.7 gm/dL (12-16) 01/29/18 06:56 Hct 40.4 % (41.0-60) L D 01/29/18 06:56 MCV 89.6 fl (81-100) 01/29/18 06:56 MCH 30.5 pg (27.0-31.0) 01/29/18 06:56 MCHC Differential 34.0 pg (28.0-36.0) 01/29/18 06:56 RDW 13.0 % (11.5-20.0) 01/29/18 06:56 Plt Count 199 Th/cmm (150-400) 01/29/18 06:56 MPV 9.0 fl 01/29/18 06:56 Neutrophils % 76.6 % (40.0-80.0) 01/29/18 06:56 Lymphocytes % 12.1 % (20.0-50.0) L 01/29/18 06:56 Monocytes % 9.5 % (2.0-10.0) 01/29/18 06:56 Eosinophils % 1.0 % (0.0-5.0) 01/29/18 06:56 Basophils % 0.8 % (0.0-2.0) 01/29/18 06:56 Sodium 136 mEq/L (136-145) 01/31/18 04:50 Potassium 3.3 mEq/L (3.5-5.1) L 01/31/18 04:50 Chloride 108 mEq/L (98-107) H 01/31/18 04:50 Carbon Dioxide 21.4 mEq/L (21.0-31.0) 01/31/18 04:50 Anion Gap 9.9 (7.0-16.0) 01/31/18 04:50 BUN 12 mg/dL (7-25) 01/31/18 04:50 Creatinine 0.7 mg/dL (0.6-1.2) 01/31/18 04:50 Est GFR ( Amer) TNP 01/31/18 04:50 Est GFR (Non-Af Amer) TNP 01/31/18 04:50 BUN/Creatinine Ratio 17.1 01/31/18 04:50 Glucose 134 mg/dL (70-105) H 01/31/18 04:50 POC Glucose 137 MG/DL (70 - 105) H 01/29/18 05:20 Uric Acid 4.7 mg/dL (2.3-6.6) 01/30/18 07:40 Calcium 8.1 mg/dL (8.6-10.3) L 01/31/18 04:50 Magnesium 2.2 mg/dL (1.9-2.7) 01/31/18 04:50 Total Bilirubin 1.3 mg/dL (0.3-1.0) H 01/30/18 07:40 AST 42 U/L (13-39) H 01/30/18 07:40 ALT 30 U/L (7-52) 01/30/18 07:40 Alkaline Phosphatase 58 U/L (34-104) 01/30/18 07:40 Total Protein 6.1 gm/dL (6.0-8.3) 01/30/18 07:40 Albumin 3.3 gm/dL (3.7-5.3) L 01/30/18 07:40 Globulin 2.8 gm/dL 01/30/18 07:40 Albumin/Globulin Ratio 1.2 (1.0-1.8) 01/30/18 07:40 Prealbumin 11 mg/dL (9-32) 01/29/18 06:56 TSH 5.37 uIU/ml (0.34-5.60) 01/31/18 04:50 - Physical Exam Vitals and I&O: Vital Signs Temp 98.6 F 01/31/18 12:06 Pulse 91 01/31/18 12:06 Resp 18 01/31/18 12:06 BP 131/68 01/31/18 12:06 Pulse Ox 94 01/31/18 12:06 Intake & Output 01/30/18 01/31/18 01/31/18 18:59 06:59 18:59 Intake Total 1473.333 954.333 Balance 1473.333 954.333 Weight (lbs) 79.946 kg 83.234 kg Intake: Intake, IV Amount 1223.333 954.333 D5-0.45NS 1,000 ml @ 100 908.333 mls/hr IV .Q10H [facility] Rx#: [id number] D5-0.45NS 1,000 ml @ 70 954.333 mls/hr IV .[id number] [facility] Rx #:[id number] Oral 250 Other: # Voids 3 # Bowel Movements 0 Weight Source Bedscale Bedscale Active Medications: Current Medications Acetaminophen (Tylenol) 650 mg PO Q4HR PRN PRN Reason: Mild Pain / Temp above 100 Stop: 03/30/18 07:45 Al Hydrox/Mg Hydrox/Simethicone (Maalox) 30 ml PO Q4HR PRN PRN Reason: GI DISTRESS Stop: 03/30/18 07:45 Dextrose/Sodium Chloride (D5-0.45ns) 1,000 mls @ 70 mls/hr IV .[id number] [facility] Stop: 03/31/18 13:14 Last Admin: 01/31/18 03:00 Dose: 70 mls/hr Levothyroxine Sodium (Synthroid) 0.1 mg PO QDAC [facility] Stop: 03/30/18 08:59 Last Admin: 01/31/18 08:15 Dose: 0.1 mg Lorazepam (Ativan) 0.25 mg PO Q8HR PRN; Protocol PRN Reason: Agitation Stop: 03/30/18 07:45 Last Admin: 01/31/18 08:47 Dose: 0.25 mg Magnesium Hydroxide (Milk Of Magnesia) 30 ml PO HS PRN PRN Reason: Constipation Stop: 03/30/18 07:45 Metoclopramide HCl (Reglan) 5 mg IVP Q8HR [facility] Stop: 03/30/18 12:59 Last Admin: 01/31/18 12:30 Dose: 5 mg Mirtazapine (Remeron) 7.5 mg PO HS [facility]RA; Protocol Stop: 03/30/18 20:59 Last Admin: 01/30/18 21:34 Dose: 7.5 mg Multivitamins/Vitamin C (Theragran) 1 tab PO DAILY [facility] Stop: 03/30/18 08:59 Last Admin: 01/31/18 08:47 Dose: 1 tab Potassium Chloride (Klor-Con) 20 meq PO DAILY [facility] Stop: 04/02/18 08:59 Quetiapine Fumarate (Seroquel) 50 mg PO BID [facility]; Protocol Stop: 03/30/18 08:59 Last Admin: 01/31/18 08:47 Dose: 50 mg Zolpidem Tartrate (Ambien) 5 mg PO HS PRN PRN Reason: Insomnia Stop: 03/30/18 07:45 General: No acute distress HEENT: Atraumatic, EOMI, Mucous membr. moist/pink Neck: Supple, +2 carotid pulse wo bruit Cardiovascular: Regular rate, Normal S1, Normal S2 Lungs: Clear to auscultation Abdomen: Bowel sounds Extremities: no Edema Neurological: Sensation intact Skin: no Rash Psych/Mental Status: Mood NL Assessment/Plan - Assessment Assessment: 1. Psychosis 2. Refusal to eat 3. Nausea -Patient appears more alert and stable -Trying to eat -Continue with encouragement of taking in PO -Supportive care
[2018-01-31] MEDS: D5-0.45NS w/40 mEq KCL 1,000 ML IV SCH (16:00)
[2018-02-01 04:57] LABS: % BASOPHILS 0.5 % (0.0-2.0); % EOSINOPHILS 2.7 % (0.0-5.0); % LYMPHOCYTES 13.6 % (20.0-50.0); % MONOCYTES 11.1 % (2.0-10.0); % NEUTROPHILS 72.1 % (40.0-80.0); EOSINOPHILE ABSOLUTE 0.2 Th/cmm (0.1-0.4); MEAN CELL VOLUME 90.6 fl (81-100); MEAN CORPUSCULAR HEMOGLOBIN 31.1 pg (27.0-31.0); MEAN CORPUSCULAR HGB CONC 34.3 pg (28.0-36.0); MEAN PLATELET VOLUME 8.9 fl; MONOCYTE ABSOLUTE 0.8 Th/cmm (0.3-1.0); NEUTROPHILE ABSOLUTE 5.3 Th/cmm (1.8-8.0); PLATELET COUNT 184 Th/cmm (150-400); RED BLOOD COUNT 4.19 Mil/cmm (3.80-5.20); RED CELL DISTRIBUTION WIDTH 12.7 % (11.5-20.0); WHITE BLOOD COUNT 7.3 Th/cmm (4.8-10.8)
[2018-02-01 05:32] LABS: ANION GAP 9.5 (7.0-16.0); BUN - UREA NITROGEN 12 mg/dL (7-25); CALCIUM SERUM 8.4 mg/dL (8.6-10.3); CARBON DIOXIDE 22.3 mEq/L (21.0-31.0); CHLORIDE 107 mEq/L (98-107); CREATININE - SERUM 0.6 mg/dL (0.6-1.2); GLUCOSE 133 mg/dL (70-105); MAGNESIUM 2.1 mg/dL (1.9-2.7); PHOSPHOROUS 2.3 mg/dL (2.5-5.0); POTASSIUM SERUM 3.8 mEq/L (3.5-5.1); SODIUM SERUM 135 mEq/L (136-145)
[2018-02-01] MEDS: D5-0.45NS w/40 mEq KCL 1,000 ML IV SCH ×2 (05:57→20:02)
[2018-02-01] MEDS: Metoclopramide 5 mg/mL 2mL Vial IVP SCH ×3 (05:57→20:19)
[2018-02-01] MEDS: Levothyroxine 0.1 Mg Tab PO SCH (06:40)
--- NOTE | 2018-02-01 08:49 | Diagnostic Imaging Report ---
KUB single view HISTORY: Constipation, lower abdominal pain COMPARISON: None FINDINGS: Calcified left breast implant is noted. Exam is limited body habitus. Joint gas-filled loops of bowel are noted with distal fecal impaction. Advanced degenerative changes spine are noted with scoliosis. IMPRESSION: Distal fecal impaction. Generalized gaseous filled loops of bowel are also noted. Please correlate with clinical findings.
[2018-02-01] MEDS ORDERED: Potassium Chloride 20 mEq ER Tab PO SCH (09:00)
--- NOTE | 2018-02-01 09:18 | GI Progress Note ---
Subjective - Review of Systems Service Date: 02/01/18 Subjective: Pt trying to eat today, feels better overall. More communicative. Objective - Results Result Diagrams: 02/01/18 04:35 02/01/18 04:35 Recent Labs: Laboratory Last Values WBC 7.3 Th/cmm (4.8-10.8) 02/01/18 04:35 RBC 4.19 Mil/cmm (3.80-5.20) 02/01/18 04:35 Hgb 13.0 gm/dL (12-16) 02/01/18 04:35 Hct 38.0 % (41.0-60) L 02/01/18 04:35 MCV 90.6 fl (81-100) 02/01/18 04:35 MCH 31.1 pg (27.0-31.0) H 02/01/18 04:35 MCHC Differential 34.3 pg (28.0-36.0) 02/01/18 04:35 RDW 12.7 % (11.5-20.0) 02/01/18 04:35 Plt Count 184 Th/cmm (150-400) 02/01/18 04:35 MPV 8.9 fl 02/01/18 04:35 Neutrophils % 72.1 % (40.0-80.0) 02/01/18 04:35 Lymphocytes % 13.6 % (20.0-50.0) L 02/01/18 04:35 Monocytes % 11.1 % (2.0-10.0) H 02/01/18 04:35 Eosinophils % 2.7 % (0.0-5.0) 02/01/18 04:35 Basophils % 0.5 % (0.0-2.0) 02/01/18 04:35 Sodium 135 mEq/L (136-145) L 02/01/18 04:35 Potassium 3.8 mEq/L (3.5-5.1) 02/01/18 04:35 Chloride 107 mEq/L (98-107) 02/01/18 04:35 Carbon Dioxide 22.3 mEq/L (21.0-31.0) 02/01/18 04:35 Anion Gap 9.5 (7.0-16.0) 02/01/18 04:35 BUN 12 mg/dL (7-25) 02/01/18 04:35 Creatinine 0.6 mg/dL (0.6-1.2) 02/01/18 04:35 Est GFR ( Amer) TNP 02/01/18 04:35 Est GFR (Non-Af Amer) TNP 02/01/18 04:35 BUN/Creatinine Ratio 20.0 02/01/18 04:35 Glucose 133 mg/dL (70-105) H 02/01/18 04:35 POC Glucose 137 MG/DL (70 - 105) H 01/29/18 05:20 Uric Acid 4.7 mg/dL (2.3-6.6) 01/30/18 07:40 Calcium 8.4 mg/dL (8.6-10.3) L 02/01/18 04:35 Phosphorus 2.3 mg/dL (2.5-5.0) L 02/01/18 04:35 Magnesium 2.1 mg/dL (1.9-2.7) 02/01/18 04:35 Total Bilirubin 1.3 mg/dL (0.3-1.0) H 01/30/18 07:40 AST 42 U/L (13-39) H 01/30/18 07:40 ALT 30 U/L (7-52) 01/30/18 07:40 Alkaline Phosphatase 58 U/L (34-104) 01/30/18 07:40 Total Protein 6.1 gm/dL (6.0-8.3) 01/30/18 07:40 Albumin 3.3 gm/dL (3.7-5.3) L 01/30/18 07:40 Globulin 2.8 gm/dL 01/30/18 07:40 Albumin/Globulin Ratio 1.2 (1.0-1.8) 01/30/18 07:40 Prealbumin 11 mg/dL (9-32) 01/29/18 06:56 TSH 5.37 uIU/ml (0.34-5.60) 01/31/18 04:50 - Physical Exam Vitals and I&O: Vital Signs Temp 97.7 F 02/01/18 08:48 Pulse 93 02/01/18 08:48 Resp 18 02/01/18 08:48 BP 180/94 02/01/18 08:48 Pulse Ox 93 02/01/18 08:48 Intake & Output 01/31/18 02/01/18 02/01/18 18:59 06:59 18:59 Intake Total 362.5 1100 Balance 362.5 1100 Weight (lbs) 83.092 kg 84.822 kg Intake: Intake, IV Amount 262.5 1000 D5-0.45NS w/40 mEq KCL 1, 1000 000 ml @ 75 mls/hr IV . [id number] [facility] Rx#:[id number] Oral 100 100 Other: # Voids 2 2 # Bowel Movements 0 Weight Source Bedscale Bedscale Active Medications: Current Medications Acetaminophen (Tylenol) 650 mg PO Q4HR PRN PRN Reason: Mild Pain / Temp above 100 Stop: 03/30/18 07:45 Al Hydrox/Mg Hydrox/Simethicone (Maalox) 30 ml PO Q4HR PRN PRN Reason: GI DISTRESS Stop: 03/30/18 07:45 Potassium Chloride/Dextrose/Sod Cl (D5-0.45ns W/40 Meq Kcl) 1,000 mls @ 75 mls/ hr IV .[id number] [facility] Stop: 04/01/18 15:26 Last Admin: 02/01/18 05:57 Dose: 75 mls/hr Levothyroxine Sodium (Synthroid) 0.1 mg PO QDAC [facility] Stop: 03/30/18 08:59 Last Admin: 02/01/18 06:40 Dose: 0.1 mg Lorazepam (Ativan) 0.25 mg PO Q8HR PRN; Protocol PRN Reason: Agitation Stop: 03/30/18 07:45 Last Admin: 01/31/18 08:47 Dose: 0.25 mg Magnesium Hydroxide (Milk Of Magnesia) 30 ml PO HS PRN PRN Reason: Constipation Stop: 03/30/18 07:45 Metoclopramide HCl (Reglan) 5 mg IVP Q8HR [facility] Stop: 03/30/18 12:59 Last Admin: 02/01/18 05:57 Dose: 5 mg Mirtazapine (Remeron) 7.5 mg PO HS [facility]; Protocol Stop: 03/30/18 20:59 Last Admin: 01/31/18 22:17 Dose: 7.5 mg Multivitamins/Vitamin C (Theragran) 1 tab PO DAILY [facility] Stop: 03/30/18 08:59 Last Admin: 01/31/18 08:47 Dose: 1 tab Quetiapine Fumarate (Seroquel) 50 mg PO BID [facility]; Protocol Stop: 03/30/18 08:59 Last Admin: 01/31/18 17:08 Dose: 50 mg Zolpidem Tartrate (Ambien) 5 mg PO HS PRN PRN Reason: Insomnia Stop: 03/30/18 07:45 General: No acute distress HEENT: Atraumatic, EOMI, Mucous membr. moist/pink Neck: Supple, +2 carotid pulse wo bruit Cardiovascular: Regular rate, Normal S1, Normal S2 Lungs: Clear to auscultation Abdomen: Bowel sounds Extremities: no Edema Neurological: Sensation intact Skin: no Rash Psych/Mental Status: Mood NL Assessment/Plan - Assessment Assessment: 1. Psychosis 2. Refusal to eat 3. Nausea -Patient appears more alert and stable -Continue with encouragement of taking in PO -Supportive care
[2018-02-01] MEDS: Multivitamin Tab PO SCH (10:11)
[2018-02-01] MEDS ORDERED: MINERAL OIL ENEMA 135 ML BOTTLE RC ONE (11:00)
--- NOTE | 2018-02-01 18:47 | General Progress Note ---
Subjective - Review of Systems Events since last encounter: patient awake alert improving Objective - Results Result Diagrams: 02/01/18 04:35 02/01/18 04:35 Recent Labs: Laboratory Last Values WBC 7.3 Th/cmm (4.8-10.8) 02/01/18 04:35 RBC 4.19 Mil/cmm (3.80-5.20) 02/01/18 04:35 Hgb 13.0 gm/dL (12-16) 02/01/18 04:35 Hct 38.0 % (41.0-60) L 02/01/18 04:35 MCV 90.6 fl (81-100) 02/01/18 04:35 MCH 31.1 pg (27.0-31.0) H 02/01/18 04:35 MCHC Differential 34.3 pg (28.0-36.0) 02/01/18 04:35 RDW 12.7 % (11.5-20.0) 02/01/18 04:35 Plt Count 184 Th/cmm (150-400) 02/01/18 04:35 MPV 8.9 fl 02/01/18 04:35 Neutrophils % 72.1 % (40.0-80.0) 02/01/18 04:35 Lymphocytes % 13.6 % (20.0-50.0) L 02/01/18 04:35 Monocytes % 11.1 % (2.0-10.0) H 02/01/18 04:35 Eosinophils % 2.7 % (0.0-5.0) 02/01/18 04:35 Basophils % 0.5 % (0.0-2.0) 02/01/18 04:35 Sodium 135 mEq/L (136-145) L 02/01/18 04:35 Potassium 3.8 mEq/L (3.5-5.1) 02/01/18 04:35 Chloride 107 mEq/L (98-107) 02/01/18 04:35 Carbon Dioxide 22.3 mEq/L (21.0-31.0) 02/01/18 04:35 Anion Gap 9.5 (7.0-16.0) 02/01/18 04:35 BUN 12 mg/dL (7-25) 02/01/18 04:35 Creatinine 0.6 mg/dL (0.6-1.2) 02/01/18 04:35 Est GFR ( Amer) TNP 02/01/18 04:35 Est GFR (Non-Af Amer) TNP 02/01/18 04:35 BUN/Creatinine Ratio 20.0 02/01/18 04:35 Glucose 133 mg/dL (70-105) H 02/01/18 04:35 POC Glucose 137 MG/DL (70 - 105) H 01/29/18 05:20 Uric Acid 4.7 mg/dL (2.3-6.6) 01/30/18 07:40 Calcium 8.4 mg/dL (8.6-10.3) L 02/01/18 04:35 Phosphorus 2.3 mg/dL (2.5-5.0) L 02/01/18 04:35 Magnesium 2.1 mg/dL (1.9-2.7) 02/01/18 04:35 Total Bilirubin 1.3 mg/dL (0.3-1.0) H 01/30/18 07:40 AST 42 U/L (13-39) H 01/30/18 07:40 ALT 30 U/L (7-52) 01/30/18 07:40 Alkaline Phosphatase 58 U/L (34-104) 01/30/18 07:40 Total Protein 6.1 gm/dL (6.0-8.3) 01/30/18 07:40 Albumin 3.3 gm/dL (3.7-5.3) L 01/30/18 07:40 Globulin 2.8 gm/dL 01/30/18 07:40 Albumin/Globulin Ratio 1.2 (1.0-1.8) 01/30/18 07:40 Prealbumin 11 mg/dL (9-32) 01/29/18 06:56 TSH 5.37 uIU/ml (0.34-5.60) 01/31/18 04:50 - Physical Exam Vitals and I&O: Vital Signs Temp 97.3 F 02/01/18 17:41 Pulse 94 02/01/18 17:41 Resp 20 02/01/18 17:41 BP 131/79 02/01/18 17:41 Pulse Ox 95 02/01/18 17:41 Intake & Output 0802/01/18 02/01/18 18:59 06:59 18:59 Intake Total 362.5 1100 600 Balance 362.5 1100 600 Weight (lbs) 83.092 kg 84.822 kg 84.822 kg Intake: Intake, IV Amount 262.5 1000 D5-0.45NS w/40 mEq KCL 1, 1000 000 ml @ 75 mls/hr IV . [id number] [facility] Rx#:[id number] Oral 100 100 600 Other: # Voids 2 2 4 # Bowel Movements 0 1 Weight Source Bedscale Bedscale Bedscale Active Medications: Current Medications Acetaminophen (Tylenol) 650 mg PO Q4HR PRN PRN Reason: Mild Pain / Temp above 100 Stop: 03/30/18 07:45 Al Hydrox/Mg Hydrox/Simethicone (Maalox) 30 ml PO Q4HR PRN PRN Reason: GI DISTRESS Stop: 03/30/18 07:45 Potassium Chloride/Dextrose/Sod Cl (D5-0.45ns W/40 Meq Kcl) 1,000 mls @ 75 mls/ hr IV .[id number] [facility] Stop: 04/01/18 15:26 Last Admin: 02/01/18 05:57 Dose: 75 mls/hr Levothyroxine Sodium (Synthroid) 0.1 mg PO QDAC [facility] Stop: 03/30/18 08:59 Last Admin: 02/01/18 06:40 Dose: 0.1 mg Lorazepam (Ativan) 0.25 mg PO Q8HR PRN; Protocol PRN Reason: Agitation Stop: 03/30/18 07:45 Last Admin: 01/31/18 08:47 Dose: 0.25 mg Magnesium Hydroxide (Milk Of Magnesia) 30 ml PO HS PRN PRN Reason: Constipation Stop: 03/30/18 07:45 Metoclopramide HCl (Reglan) 5 mg IVP Q8HR [facility] Stop: 03/30/18 12:59 Last Admin: 02/01/18 12:45 Dose: 5 mg Mirtazapine (Remeron) 7.5 mg PO HS [facility]; Protocol Stop: 03/30/18 20:59 Last Admin: 01/31/18 22:17 Dose: 7.5 mg Multivitamins/Vitamin C (Theragran) 1 tab PO DAILY [facility] Stop: 03/30/18 08:59 Last Admin: 02/01/18 10:11 Dose: 1 tab Quetiapine Fumarate (Seroquel) 50 mg PO BID [facility]; Protocol Stop: 03/30/18 08:59 Last Admin: 02/01/18 16:12 Dose: 50 mg Zolpidem Tartrate (Ambien) 5 mg PO HS PRN PRN Reason: Insomnia Stop: 03/30/18 07:45 General: No acute distress HEENT: Atraumatic, EOMI, Mucous membr. moist/pink Neck: Supple, +2 carotid pulse wo bruit Cardiovascular: Regular rate, Normal S1, Normal S2 Lungs: Clear to auscultation Abdomen: Bowel sounds Extremities: no Edema Neurological: Sensation intact Skin: no Rash Psych/Mental Status: Mood NL Nutritional Asmnt/Malnutr-PDOC - Dietary Evaluation Malnutrition Findings (Please click <Entered> for more info): Nutritional Asmnt/Malnutrition Start: 01/29/18 13: 31 Text: Status: Complete Freq: Protocol: Document 01/29/18 13:31 ELOISA (Rec: 01/29/18 13:36 ELOISA [email or web address]) Nutritional Asmnt/Malnutrition Patient General Information Diagnosis failure to thrive, Pertinent Medical Hx/Surgical Hx no H&P completed as of 01/29 @ 1331 Subjective Information Pt sitting up in bed did not answer RD questions at time of visit Current Diet Order/ Nutrition Support regular Pertinent Medications maalox, D51/2NS @100ml/hr (2. 4L/day 408kcals/day), synthroid, MOM, theragran Pertinent Labs 01/29: Na 142, K 3.4, Cl 111, CO2 24.2, BUN 20, Cr 0.7, Ca 9 .0 Nutritional Hx/Data Height 1.63 m Height (Calculated Centimeters) 162.6 Current Weight (lbs) 80.286 kg Weight (Calculated Kilograms) 80.3 Weight (Calculated Grams) 10350.8 Body Mass Index (BMI) 30.4 Weight Status Obese GI Symptoms GI Symptoms None Cultural/Ethnic/Oriental Orthodox Belief unknown Usual diet at home regular Skin Integrity/Comment: diaz score 15 Estimated Nutritional Goals BEE in Kcals: Using Current wt Calories/Kcals/Kg 25-28kcals/kg Kcals Calculated 1999-2240kcals/day Protein: Using Current wt Protein g/kg/kg Protein Calculated 80g/day Fluid: ml per MD Nutritional Problem 1. Problem Problem No nutrition diagnosis at this time Intervention/Recommendation Comments Recommend continuing Regular diet Consider appetite stimulant to help with PO intake Recommend if PO intake continues to be low, NGT placement for enteral nutrition Expected Outcomes/Goals Expected Outcomes/Goals PO Intake >75% of meals
[2018-02-02] MEDS: Metoclopramide 5 mg/mL 2mL Vial IVP SCH ×3 (05:03→20:23)
[2018-02-02] MEDS: Levothyroxine 0.1 Mg Tab PO SCH (06:47)
[2018-02-02] MEDS: D5-0.45NS w/40 mEq KCL 1,000 ML IV SCH ×2 (08:48→21:43)
[2018-02-02] MEDS: Multivitamin Tab PO SCH (09:13)
--- NOTE | 2018-02-02 09:58 | GI Progress Note ---
Subjective - Review of Systems Service Date: 02/02/18 Subjective: Pt still refusing to eat, vomited X 1 yesterday Objective - Results Result Diagrams: 02/01/18 04:35 02/01/18 04:35 Recent Labs: Laboratory Last Values WBC 7.3 Th/cmm (4.8-10.8) 02/01/18 04:35 RBC 4.19 Mil/cmm (3.80-5.20) 02/01/18 04:35 Hgb 13.0 gm/dL (12-16) 02/01/18 04:35 Hct 38.0 % (41.0-60) L 02/01/18 04:35 MCV 90.6 fl (81-100) 02/01/18 04:35 MCH 31.1 pg (27.0-31.0) H 02/01/18 04:35 MCHC Differential 34.3 pg (28.0-36.0) 02/01/18 04:35 RDW 12.7 % (11.5-20.0) 02/01/18 04:35 Plt Count 184 Th/cmm (150-400) 02/01/18 04:35 MPV 8.9 fl 02/01/18 04:35 Neutrophils % 72.1 % (40.0-80.0) 02/01/18 04:35 Lymphocytes % 13.6 % (20.0-50.0) L 02/01/18 04:35 Monocytes % 11.1 % (2.0-10.0) H 02/01/18 04:35 Eosinophils % 2.7 % (0.0-5.0) 02/01/18 04:35 Basophils % 0.5 % (0.0-2.0) 02/01/18 04:35 Sodium 135 mEq/L (136-145) L 02/01/18 04:35 Potassium 3.8 mEq/L (3.5-5.1) 02/01/18 04:35 Chloride 107 mEq/L (98-107) 02/01/18 04:35 Carbon Dioxide 22.3 mEq/L (21.0-31.0) 02/01/18 04:35 Anion Gap 9.5 (7.0-16.0) 02/01/18 04:35 BUN 12 mg/dL (7-25) 02/01/18 04:35 Creatinine 0.6 mg/dL (0.6-1.2) 02/01/18 04:35 Est GFR ( Amer) TNP 02/01/18 04:35 Est GFR (Non-Af Amer) TNP 02/01/18 04:35 BUN/Creatinine Ratio 20.0 02/01/18 04:35 Glucose 133 mg/dL (70-105) H 02/01/18 04:35 POC Glucose 137 MG/DL (70 - 105) H 01/29/18 05:20 Uric Acid 4.7 mg/dL (2.3-6.6) 01/30/18 07:40 Calcium 8.4 mg/dL (8.6-10.3) L 02/01/18 04:35 Phosphorus 2.3 mg/dL (2.5-5.0) L 02/01/18 04:35 Magnesium 2.1 mg/dL (1.9-2.7) 02/01/18 04:35 Total Bilirubin 1.3 mg/dL (0.3-1.0) H 01/30/18 07:40 AST 42 U/L (13-39) H 01/30/18 07:40 ALT 30 U/L (7-52) 01/30/18 07:40 Alkaline Phosphatase 58 U/L (34-104) 01/30/18 07:40 Total Protein 6.1 gm/dL (6.0-8.3) 01/30/18 07:40 Albumin 3.3 gm/dL (3.7-5.3) L 01/30/18 07:40 Globulin 2.8 gm/dL 01/30/18 07:40 Albumin/Globulin Ratio 1.2 (1.0-1.8) 01/30/18 07:40 Prealbumin 11 mg/dL (9-32) 01/29/18 06:56 TSH 5.37 uIU/ml (0.34-5.60) 01/31/18 04:50 - Physical Exam Vitals and I&O: Vital Signs Temp 96.6 F 02/02/18 08:07 Pulse 80 02/02/18 08:07 Resp 17 02/02/18 08:07 BP 125/71 02/02/18 08:07 Pulse Ox 97 02/02/18 08:07 Intake & Output 02/01/18 02/02/18 02/02/18 18:59 06:59 18:59 Intake Total 600 1000 957.5 Balance 600 1000 957.5 Weight (lbs) 84.822 kg 84.368 kg Intake: Intake, IV Amount 1000 957.5 D5-0.45NS w/40 mEq KCL 1, 1000 957.5 000 ml @ 75 mls/hr IV . [id number] [facility] Rx#:[id number] Oral 600 Other: # Voids 4 2 # Bowel Movements 1 0 Weight Source Bedscale Bedscale Active Medications: Current Medications Acetaminophen (Tylenol) 650 mg PO Q4HR PRN PRN Reason: Mild Pain / Temp above 100 Stop: 03/30/18 07:45 Al Hydrox/Mg Hydrox/Simethicone (Maalox) 30 ml PO Q4HR PRN PRN Reason: GI DISTRESS Stop: 03/30/18 07:45 Potassium Chloride/Dextrose/Sod Cl (D5-0.45ns W/40 Meq Kcl) 1,000 mls @ 75 mls/ hr IV .[id number] [facility] Stop: 04/01/18 15:26 Last Admin: 02/02/18 08:48 Dose: 75 mls/hr Levothyroxine Sodium (Synthroid) 0.1 mg PO QDAC [facility] Stop: 03/30/18 08:59 Last Admin: 02/02/18 06:47 Dose: 0.1 mg Lorazepam (Ativan) 0.25 mg PO Q8HR PRN; Protocol PRN Reason: Agitation Stop: 03/30/18 07:45 Last Admin: 01/31/18 08:47 Dose: 0.25 mg Magnesium Hydroxide (Milk Of Magnesia) 30 ml PO HS PRN PRN Reason: Constipation Stop: 03/30/18 07:45 Metoclopramide HCl (Reglan) 5 mg IVP Q8HR [facility] Stop: 03/30/18 12:59 Last Admin: 02/02/18 05:03 Dose: 5 mg Mirtazapine (Remeron) 7.5 mg PO HS [facility]; Protocol Stop: 03/30/18 20:59 Last Admin: 02/01/18 20:18 Dose: 7.5 mg Multivitamins/Vitamin C (Theragran) 1 tab PO DAILY [facility] Stop: 03/30/18 08:59 Last Admin: 02/02/18 09:13 Dose: 1 tab Quetiapine Fumarate (Seroquel) 50 mg PO BID [facility]; Protocol Stop: 03/30/18 08:59 Last Admin: 02/02/18 08:48 Dose: 50 mg Zolpidem Tartrate (Ambien) 5 mg PO HS PRN PRN Reason: Insomnia Stop: 03/30/18 07:45 General: No acute distress HEENT: Atraumatic, EOMI, Mucous membr. moist/pink Neck: Supple, +2 carotid pulse wo bruit Cardiovascular: Regular rate, Normal S1, Normal S2 Lungs: Clear to auscultation Abdomen: Bowel sounds Extremities: no Edema Neurological: Sensation intact Skin: no Rash Psych/Mental Status: Mood NL Assessment/Plan - Assessment Assessment: 1. Psychosis 2. Refusal to eat 3. Nausea -Discussed with mom at the bedside -Check RUQ U/S -Trial of Reglan -Mother prefers to look for cause, does not want a G tube -Check LFTs in AM
--- NOTE | 2018-02-02 10:01 | GI Progress Note ---
Subjective - Review of Systems Service Date: 02/02/18 Subjective: PT eating about 20-30% of her meals, hopsice evaluation today Objective - Results Result Diagrams: 02/01/18 04:35 02/01/18 04:35 Recent Labs: Laboratory Last Values WBC 7.3 Th/cmm (4.8-10.8) 02/01/18 04:35 RBC 4.19 Mil/cmm (3.80-5.20) 02/01/18 04:35 Hgb 13.0 gm/dL (12-16) 02/01/18 04:35 Hct 38.0 % (41.0-60) L 02/01/18 04:35 MCV 90.6 fl (81-100) 02/01/18 04:35 MCH 31.1 pg (27.0-31.0) H 02/01/18 04:35 MCHC Differential 34.3 pg (28.0-36.0) 02/01/18 04:35 RDW 12.7 % (11.5-20.0) 02/01/18 04:35 Plt Count 184 Th/cmm (150-400) 02/01/18 04:35 MPV 8.9 fl 02/01/18 04:35 Neutrophils % 72.1 % (40.0-80.0) 02/01/18 04:35 Lymphocytes % 13.6 % (20.0-50.0) L 02/01/18 04:35 Monocytes % 11.1 % (2.0-10.0) H 02/01/18 04:35 Eosinophils % 2.7 % (0.0-5.0) 02/01/18 04:35 Basophils % 0.5 % (0.0-2.0) 02/01/18 04:35 Sodium 135 mEq/L (136-145) L 02/01/18 04:35 Potassium 3.8 mEq/L (3.5-5.1) 02/01/18 04:35 Chloride 107 mEq/L (98-107) 02/01/18 04:35 Carbon Dioxide 22.3 mEq/L (21.0-31.0) 02/01/18 04:35 Anion Gap 9.5 (7.0-16.0) 02/01/18 04:35 BUN 12 mg/dL (7-25) 02/01/18 04:35 Creatinine 0.6 mg/dL (0.6-1.2) 02/01/18 04:35 Est GFR ( Amer) TNP 02/01/18 04:35 Est GFR (Non-Af Amer) TNP 02/01/18 04:35 BUN/Creatinine Ratio 20.0 02/01/18 04:35 Glucose 133 mg/dL (70-105) H 02/01/18 04:35 POC Glucose 137 MG/DL (70 - 105) H 01/29/18 05:20 Uric Acid 4.7 mg/dL (2.3-6.6) 01/30/18 07:40 Calcium 8.4 mg/dL (8.6-10.3) L 02/01/18 04:35 Phosphorus 2.3 mg/dL (2.5-5.0) L 02/01/18 04:35 Magnesium 2.1 mg/dL (1.9-2.7) 02/01/18 04:35 Total Bilirubin 1.3 mg/dL (0.3-1.0) H 01/30/18 07:40 AST 42 U/L (13-39) H 01/30/18 07:40 ALT 30 U/L (7-52) 01/30/18 07:40 Alkaline Phosphatase 58 U/L (34-104) 01/30/18 07:40 Total Protein 6.1 gm/dL (6.0-8.3) 01/30/18 07:40 Albumin 3.3 gm/dL (3.7-5.3) L 01/30/18 07:40 Globulin 2.8 gm/dL 01/30/18 07:40 Albumin/Globulin Ratio 1.2 (1.0-1.8) 01/30/18 07:40 Prealbumin 11 mg/dL (9-32) 01/29/18 06:56 TSH 5.37 uIU/ml (0.34-5.60) 01/31/18 04:50 - Physical Exam Vitals and I&O: Vital Signs Temp 96.6 F 02/02/18 08:07 Pulse 80 02/02/18 08:07 Resp 17 02/02/18 08:07 BP 125/71 02/02/18 08:07 Pulse Ox 97 02/02/18 08:07 Intake & Output 02/01/18 02/02/18 02/02/18 18:59 06:59 18:59 Intake Total 600 1000 957.5 Balance 600 1000 957.5 Weight (lbs) 84.822 kg 84.368 kg Intake: Intake, IV Amount 1000 957.5 D5-0.45NS w/40 mEq KCL 1, 1000 957.5 000 ml @ 75 mls/hr IV . [id number] ISRA Rx#:[id number] Oral 600 Other: # Voids 4 2 # Bowel Movements 1 0 Weight Source Bedscale Bedscale Active Medications: Current Medications Acetaminophen (Tylenol) 650 mg PO Q4HR PRN PRN Reason: Mild Pain / Temp above 100 Stop: 03/30/18 07:45 Al Hydrox/Mg Hydrox/Simethicone (Maalox) 30 ml PO Q4HR PRN PRN Reason: GI DISTRESS Stop: 03/30/18 07:45 Potassium Chloride/Dextrose/Sod Cl (D5-0.45ns W/40 Meq Kcl) 1,000 mls @ 75 mls/ hr IV .[id number] ISRA Stop: 04/01/18 15:26 Last Admin: 02/02/18 08:48 Dose: 75 mls/hr Levothyroxine Sodium (Synthroid) 0.1 mg PO QDAC ISRA Stop: 03/30/18 08:59 Last Admin: 02/02/18 06:47 Dose: 0.1 mg Lorazepam (Ativan) 0.25 mg PO Q8HR PRN; Protocol PRN Reason: Agitation Stop: 03/30/18 07:45 Last Admin: 01/31/18 08:47 Dose: 0.25 mg Magnesium Hydroxide (Milk Of Magnesia) 30 ml PO HS PRN PRN Reason: Constipation Stop: 03/30/18 07:45 Metoclopramide HCl (Reglan) 5 mg IVP Q8HR ISRA Stop: 03/30/18 12:59 Last Admin: 02/02/18 05:03 Dose: 5 mg Mirtazapine (Remeron) 7.5 mg PO HS ISRA; Protocol Stop: 03/30/18 20:59 Last Admin: 02/01/18 20:18 Dose: 7.5 mg Multivitamins/Vitamin C (Theragran) 1 tab PO DAILY ISRA Stop: 03/30/18 08:59 Last Admin: 02/02/18 09:13 Dose: 1 tab Quetiapine Fumarate (Seroquel) 50 mg PO BID [facility]; Protocol Stop: 03/30/18 08:59 Last Admin: 02/02/18 08:48 Dose: 50 mg Zolpidem Tartrate (Ambien) 5 mg PO HS PRN PRN Reason: Insomnia Stop: 03/30/18 07:45 General: No acute distress HEENT: Atraumatic, EOMI, Mucous membr. moist/pink Neck: Supple, +2 carotid pulse wo bruit Cardiovascular: Regular rate, Normal S1, Normal S2 Lungs: Clear to auscultation Abdomen: Bowel sounds Extremities: no Edema Neurological: Sensation intact Skin: no Rash Psych/Mental Status: Mood NL Assessment/Plan - Assessment Assessment: 1. Psychosis 2. Refusal to eat 3. Nausea -Hospice evaluation -Will have to consider PEG tube if primary desires or family -For now, contnue with bedside encouragement -Patient not reliable as historian
--- NOTE | 2018-02-02 10:30 | Consultation ---
DATE OF CONSULTATION: 02/02/2018 The patient was transferred from [facility] on 01/28/2018. IDENTIFYING INFORMATION: The patient is an 87-year-old female. HISTORY OF PRESENT ILLNESS: The patient was admitted because of failure to thrive. She was not eating, she was not producing urine, so she was transferred to Med/Surg. The patient was in a psychiatric unit because of failure to thrive. The patient herself was a poor historian, appear to be weak, was unable to participate in conversation, and appears to be sedated. PAST PSYCHIATRIC HISTORY: The patient with a history of failure to thrive. She was living in a shelter facility. Unable to participate in a meaningful conversation. MEDICAL HISTORY: Failure to thrive, hypertension, hypothyroidism, osteoarthritis and history of psychosis. ALLERGIES: The patient has no known drug allergies. CURRENT MEDICATIONS: Metoclopramide and Remeron 7.5 mg at bedtime. FAMILY AND SOCIAL HISTORY: Unable to participate in meaningful conversation. MENTAL STATUS EXAMINATION: The patient was somewhat sedated, unable to participate in meaningful conversation or make safe plan for self-care. She has not been eating. She sleep well. Unable to tell me if she is hearing voices, seeing things or any suicidal ideation or homicidal ideation. Unable to test her memory or do a formal mental status exam on her. Her insight and judgment are questionable. IMPRESSION: AXIS I: Depression, not otherwise specified. Also, possible dementia. MEDICAL DIAGNOSES: As per medical doctor. I would recommend to continue the Remeron. The patient can go back to [facility] if she is still symptomatic and they may need to follow up with the psychiatrist upon discharge. Thank you very much for allowing me to participate in the care of this most interesting lady. [facility]# [id number]
--- NOTE | 2018-02-02 15:00 | General Progress Note ---
Subjective - Review of Systems Events since last encounter: patient awake alert in no distress Objective - Results Result Diagrams: 02/01/18 04:35 02/01/18 04:35 Recent Labs: Laboratory Last Values WBC 7.3 Th/cmm (4.8-10.8) 02/01/18 04:35 RBC 4.19 Mil/cmm (3.80-5.20) 02/01/18 04:35 Hgb 13.0 gm/dL (12-16) 02/01/18 04:35 Hct 38.0 % (41.0-60) L 02/01/18 04:35 MCV 90.6 fl (81-100) 02/01/18 04:35 MCH 31.1 pg (27.0-31.0) H 02/01/18 04:35 MCHC Differential 34.3 pg (28.0-36.0) 02/01/18 04:35 RDW 12.7 % (11.5-20.0) 02/01/18 04:35 Plt Count 184 Th/cmm (150-400) 02/01/18 04:35 MPV 8.9 fl 02/01/18 04:35 Neutrophils % 72.1 % (40.0-80.0) 02/01/18 04:35 Lymphocytes % 13.6 % (20.0-50.0) L 02/01/18 04:35 Monocytes % 11.1 % (2.0-10.0) H 02/01/18 04:35 Eosinophils % 2.7 % (0.0-5.0) 02/01/18 04:35 Basophils % 0.5 % (0.0-2.0) 02/01/18 04:35 Sodium 135 mEq/L (136-145) L 02/01/18 04:35 Potassium 3.8 mEq/L (3.5-5.1) 02/01/18 04:35 Chloride 107 mEq/L (98-107) 02/01/18 04:35 Carbon Dioxide 22.3 mEq/L (21.0-31.0) 02/01/18 04:35 Anion Gap 9.5 (7.0-16.0) 02/01/18 04:35 BUN 12 mg/dL (7-25) 02/01/18 04:35 Creatinine 0.6 mg/dL (0.6-1.2) 02/01/18 04:35 Est GFR ( Amer) TNP 02/01/18 04:35 Est GFR (Non-Af Amer) TNP 02/01/18 04:35 BUN/Creatinine Ratio 20.0 02/01/18 04:35 Glucose 133 mg/dL (70-105) H 02/01/18 04:35 POC Glucose 137 MG/DL (70 - 105) H 01/29/18 05:20 Uric Acid 4.7 mg/dL (2.3-6.6) 01/30/18 07:40 Calcium 8.4 mg/dL (8.6-10.3) L 02/01/18 04:35 Phosphorus 2.3 mg/dL (2.5-5.0) L 02/01/18 04:35 Magnesium 2.1 mg/dL (1.9-2.7) 02/01/18 04:35 Total Bilirubin 1.3 mg/dL (0.3-1.0) H 01/30/18 07:40 AST 42 U/L (13-39) H 01/30/18 07:40 ALT 30 U/L (7-52) 01/30/18 07:40 Alkaline Phosphatase 58 U/L (34-104) 01/30/18 07:40 Total Protein 6.1 gm/dL (6.0-8.3) 01/30/18 07:40 Albumin 3.3 gm/dL (3.7-5.3) L 01/30/18 07:40 Globulin 2.8 gm/dL 01/30/18 07:40 Albumin/Globulin Ratio 1.2 (1.0-1.8) 01/30/18 07:40 Prealbumin 11 mg/dL (9-32) 01/29/18 06:56 Vitamin B12 252 pg/mL (232-1245) 02/01/18 04:35 TSH 5.37 uIU/ml (0.34-5.60) 01/31/18 04:50 - Physical Exam Vitals and I&O: Vital Signs Temp 97.0 F 02/02/18 11:37 Pulse 79 02/02/18 11:37 Resp 18 02/02/18 11:37 BP 118/67 02/02/18 11:37 Pulse Ox 98 02/02/18 11:37 Intake & Output 02/01/18 02/02/18 02/02/18 18:59 06:59 18:59 Intake Total 600 1000 957.5 Balance 600 1000 957.5 Weight (lbs) 84.822 kg 84.368 kg Intake: Intake, IV Amount 1000 957.5 D5-0.45NS w/40 mEq KCL 1, 1000 957.5 000 ml @ 75 mls/hr IV . [id number] ISRA Rx#:[id number] Oral 600 Other: # Voids 4 2 # Bowel Movements 1 0 Weight Source Bedscale Bedscale Active Medications: Current Medications Acetaminophen (Tylenol) 650 mg PO Q4HR PRN PRN Reason: Mild Pain / Temp above 100 Stop: 03/30/18 07:45 Al Hydrox/Mg Hydrox/Simethicone (Maalox) 30 ml PO Q4HR PRN PRN Reason: GI DISTRESS Stop: 03/30/18 07:45 Potassium Chloride/Dextrose/Sod Cl (D5-0.45ns W/40 Meq Kcl) 1,000 mls @ 75 mls/ hr IV .[id number] ISRA Stop: 04/01/18 15:26 Last Admin: 02/02/18 08:48 Dose: 75 mls/hr Levothyroxine Sodium (Synthroid) 0.1 mg PO QDAC ISRA Stop: 03/30/18 08:59 Last Admin: 02/02/18 06:47 Dose: 0.1 mg Lorazepam (Ativan) 0.25 mg PO Q8HR PRN; Protocol PRN Reason: Agitation Stop: 03/30/18 07:45 Last Admin: 01/31/18 08:47 Dose: 0.25 mg Magnesium Hydroxide (Milk Of Magnesia) 30 ml PO HS PRN PRN Reason: Constipation Stop: 03/30/18 07:45 Metoclopramide HCl (Reglan) 5 mg IVP Q8HR ISRA Stop: 03/30/18 12:59 Last Admin: 02/02/18 12:10 Dose: 5 mg Mirtazapine (Remeron) 7.5 mg PO HS ISRA; Protocol Stop: 03/30/18 20:59 Last Admin: 02/01/18 20:18 Dose: 7.5 mg Multivitamins/Vitamin C (Theragran) 1 tab PO DAILY ISRA Stop: 03/30/18 08:59 Last Admin: 02/02/18 09:13 Dose: 1 tab Quetiapine Fumarate (Seroquel) 50 mg PO BID ISRA; Protocol Stop: 03/30/18 08:59 Last Admin: 02/02/18 08:48 Dose: 50 mg Zolpidem Tartrate (Ambien) 5 mg PO HS PRN PRN Reason: Insomnia Stop: 03/30/18 07:45 General: No acute distress HEENT: Atraumatic, EOMI, Mucous membr. moist/pink Neck: Supple, +2 carotid pulse wo bruit Cardiovascular: Regular rate, Normal S1, Normal S2 Lungs: Clear to auscultation Abdomen: Bowel sounds Extremities: no Edema Neurological: Sensation intact Skin: no Rash Psych/Mental Status: Mood NL Nutritional Asmnt/Malnutr-PDOC - Dietary Evaluation Malnutrition Findings (Please click <Entered> for more info): Nutritional Asmnt/Malnutrition Start: 01/29/18 13: 31 Text: Status: Complete Freq: Protocol: Document 01/29/18 13:31 ELOISA (Rec: 01/29/18 13:36 ELOISA [email or web address]- [email or web address]) Nutritional Asmnt/Malnutrition Patient General Information Diagnosis failure to thrive, Pertinent Medical Hx/Surgical Hx no H&P completed as of 01/29 @ 1331 Subjective Information Pt sitting up in bed did not answer RD questions at time of visit Current Diet Order/ Nutrition Support regular Pertinent Medications maalox, D51/2NS @100ml/hr (2. 4L/day 408kcals/day), synthroid, MOM, theragran Pertinent Labs 01/29: Na 142, K 3.4, Cl 111, CO2 24.2, BUN 20, Cr 0.7, Ca 9 .0 Nutritional Hx/Data Height 1.63 m Height (Calculated Centimeters) 162.6 Current Weight (lbs) 80.286 kg Weight (Calculated Kilograms) 80.3 Weight (Calculated Grams) 90222.8 Body Mass Index (BMI) 30.4 Weight Status Obese GI Symptoms GI Symptoms None Cultural/Ethnic/Yazdanism Belief unknown Usual diet at home regular Skin Integrity/Comment: diaz score 15 Estimated Nutritional Goals BEE in Kcals: Using Current wt Calories/Kcals/Kg 25-28kcals/kg Kcals Calculated 1999-2239kcals/day Protein: Using Current wt Protein g/kg/kg Protein Calculated 80g/day Fluid: ml per MD Nutritional Problem 1. Problem Problem No nutrition diagnosis at this time Intervention/Recommendation Comments Recommend continuing Regular diet Consider appetite stimulant to help with PO intake Recommend if PO intake continues to be low, NGT placement for enteral nutrition Expected Outcomes/Goals Expected Outcomes/Goals PO Intake >75% of meals
[2018-02-02] MEDS ORDERED: Lactulose 10 Gm/15 mL 30mL UDC PO ONE (18:00)
[2018-02-03] MEDS: Metoclopramide 5 mg/mL 2mL Vial IVP SCH ×3 (05:15→21:21)
[2018-02-03] MEDS: Levothyroxine 0.1 Mg Tab PO SCH (06:36)
[2018-02-03 06:43] LABS: % BASOPHILS 0.5 % (0.0-2.0); % EOSINOPHILS 4.8 % (0.0-5.0); % LYMPHOCYTES 14.5 % (20.0-50.0); % MONOCYTES 9.4 % (2.0-10.0); % NEUTROPHILS 70.8 % (40.0-80.0); EOSINOPHILE ABSOLUTE 0.3 Th/cmm (0.1-0.4); HEMATOCRIT 41.3 % (41.0-60); HEMOGLOBIN 13.8 gm/dL (12-16); MEAN CELL VOLUME 91.9 fl (81-100); MEAN CORPUSCULAR HEMOGLOBIN 30.6 pg (27.0-31.0); MEAN CORPUSCULAR HGB CONC 33.3 pg (28.0-36.0); MEAN PLATELET VOLUME 8.9 fl; MONOCYTE ABSOLUTE 0.7 Th/cmm (0.3-1.0); NEUTROPHILE ABSOLUTE 5.2 Th/cmm (1.8-8.0); PLATELET COUNT 233 Th/cmm (150-400); RED CELL DISTRIBUTION WIDTH 12.9 % (11.5-20.0); WHITE BLOOD COUNT 7.2 Th/cmm (4.8-10.8)
[2018-02-03 07:03] LABS: ALBUMIN 3.3 gm/dL (3.7-5.3); ANION GAP 10.1 (7.0-16.0); BUN - UREA NITROGEN 12 mg/dL (7-25); CALCIUM SERUM 9.1 mg/dL (8.6-10.3); CARBON DIOXIDE 23.1 mEq/L (21.0-31.0); CHLORIDE 104 mEq/L (98-107); CREATININE - SERUM 0.6 mg/dL (0.6-1.2); GLUCOSE 150 mg/dL (70-105); POTASSIUM SERUM 4.2 mEq/L (3.5-5.1); SODIUM SERUM 133 mEq/L (136-145)
[2018-02-03] MEDS: Multivitamin Tab PO SCH (08:46)
--- NOTE | 2018-02-03 09:27 | GI Progress Note ---
Subjective - Review of Systems Service Date: 02/03/18 Subjective: EVENTS NOTED. NOT EATING MUCH. HAS SOME CHOKING ON PILLS. Objective - Results Result Diagrams: 02/03/18 05:55 02/03/18 05:55 Recent Labs: Laboratory Last Values WBC 7.2 Th/cmm (4.8-10.8) 02/03/18 05:55 RBC 4.50 Mil/cmm (3.80-5.20) 02/03/18 05:55 Hgb 13.8 gm/dL (12-16) 02/03/18 05:55 Hct 41.3 % (41.0-60) 02/03/18 05:55 MCV 91.9 fl (81-100) 02/03/18 05:55 MCH 30.6 pg (27.0-31.0) 02/03/18 05:55 MCHC Differential 33.3 pg (28.0-36.0) 02/03/18 05:55 RDW 12.9 % (11.5-20.0) 02/03/18 05:55 Plt Count 233 Th/cmm (150-400) 02/03/18 05:55 MPV 8.9 fl 02/03/18 05:55 Neutrophils % 70.8 % (40.0-80.0) 02/03/18 05:55 Lymphocytes % 14.5 % (20.0-50.0) L 02/03/18 05:55 Monocytes % 9.4 % (2.0-10.0) 02/03/18 05:55 Eosinophils % 4.8 % (0.0-5.0) 02/03/18 05:55 Basophils % 0.5 % (0.0-2.0) 02/03/18 05:55 Sodium 133 mEq/L (136-145) L 02/03/18 05:55 Potassium 4.2 mEq/L (3.5-5.1) 02/03/18 05:55 Chloride 104 mEq/L (98-107) 02/03/18 05:55 Carbon Dioxide 23.1 mEq/L (21.0-31.0) 02/03/18 05:55 Anion Gap 10.1 (7.0-16.0) 02/03/18 05:55 BUN 12 mg/dL (7-25) 02/03/18 05:55 Creatinine 0.6 mg/dL (0.6-1.2) 02/03/18 05:55 Est GFR ( Amer) TNP 02/03/18 05:55 Est GFR (Non-Af Amer) TNP 02/03/18 05:55 BUN/Creatinine Ratio 20.0 02/03/18 05:55 Glucose 150 mg/dL (70-105) H 02/03/18 05:55 POC Glucose 137 MG/DL (70 - 105) H 01/29/18 05:20 Uric Acid 4.7 mg/dL (2.3-6.6) 01/30/18 07:40 Calcium 9.1 mg/dL (8.6-10.3) 02/03/18 05:55 Phosphorus 2.3 mg/dL (2.5-5.0) L 02/01/18 04:35 Magnesium 2.1 mg/dL (1.9-2.7) 02/01/18 04:35 Total Bilirubin 1.3 mg/dL (0.3-1.0) H 01/30/18 07:40 AST 42 U/L (13-39) H 01/30/18 07:40 ALT 30 U/L (7-52) 01/30/18 07:40 Alkaline Phosphatase 58 U/L (34-104) 01/30/18 07:40 Total Protein 6.1 gm/dL (6.0-8.3) 01/30/18 07:40 Albumin 3.3 gm/dL (3.7-5.3) L 02/03/18 05:55 Globulin 2.8 gm/dL 01/30/18 07:40 Albumin/Globulin Ratio 1.2 (1.0-1.8) 01/30/18 07:40 Prealbumin 11 mg/dL (9-32) 01/29/18 06:56 Aldosterone <1.0 ng/dL (0.0-30.0) 01/31/18 04:50 Vitamin B12 252 pg/mL (232-1245) 02/01/18 04:35 TSH 5.37 uIU/ml (0.34-5.60) 01/31/18 04:50 - Physical Exam Vitals and I&O: Vital Signs Temp 98.1 F 02/03/18 08:56 Pulse 80 02/03/18 08:56 Resp 18 02/03/18 08:56 BP 132/77 02/03/18 08:56 Pulse Ox 99 02/03/18 08:56 Intake & Output 02/02/18 02/03/18 02/03/18 18:59 06:59 18:59 Intake Total 957.5 968.75 Balance 957.5 968.75 Weight (lbs) 84.822 kg Intake: Intake, IV Amount 957.5 968.75 D5-0.45NS w/40 mEq KCL 1, 957.5 968.75 000 ml @ 75 mls/hr IV . [id number] ISRA Rx#:[id number] Other: # Voids 2 # Bowel Movements 0 Weight Source Bedscale Active Medications: Current Medications Acetaminophen (Tylenol) 650 mg PO Q4HR PRN PRN Reason: Mild Pain / Temp above 100 Stop: 03/30/18 07:45 Al Hydrox/Mg Hydrox/Simethicone (Maalox) 30 ml PO Q4HR PRN PRN Reason: GI DISTRESS Stop: 03/30/18 07:45 Potassium Chloride/Dextrose/Sod Cl (D5-0.45ns W/40 Meq Kcl) 1,000 mls @ 75 mls/ hr IV .[id number] ISRA Stop: 04/01/18 15:26 Last Admin: 02/02/18 21:43 Dose: 75 mls/hr Levothyroxine Sodium (Synthroid) 0.1 mg PO QDAC ISRA Stop: 03/30/18 08:59 Last Admin: 02/03/18 06:36 Dose: 0.1 mg Lorazepam (Ativan) 0.25 mg PO Q8HR PRN; Protocol PRN Reason: Agitation Stop: 03/30/18 07:45 Last Admin: 01/31/18 08:47 Dose: 0.25 mg Magnesium Hydroxide (Milk Of Magnesia) 30 ml PO HS PRN PRN Reason: Constipation Stop: 03/30/18 07:45 Last Admin: 02/02/18 20:30 Dose: 30 ml Metoclopramide HCl (Reglan) 5 mg IVP Q8HR ISRA Stop: 03/30/18 12:59 Last Admin: 02/03/18 05:15 Dose: 5 mg Mirtazapine (Remeron) 7.5 mg PO HS ISRA; Protocol Stop: 03/30/18 20:59 Last Admin: 02/02/18 20:23 Dose: 7.5 mg Multivitamins/Vitamin C (Theragran) 1 tab PO DAILY ISRA Stop: 03/30/18 08:59 Last Admin: 02/03/18 08:46 Dose: 1 tab Quetiapine Fumarate (Seroquel) 50 mg PO BID ISRA; Protocol Stop: 03/30/18 08:59 Last Admin: 02/03/18 08:46 Dose: 50 mg Zolpidem Tartrate (Ambien) 5 mg PO HS PRN PRN Reason: Insomnia Stop: 03/30/18 07:45 General: No acute distress HEENT: Atraumatic Neck: Supple Cardiovascular: Regular rate Lungs: Clear to auscultation Abdomen: Bowel sounds, Soft, no Tender, no Distended Extremities: no Edema Skin: no Rash Assessment/Plan - Assessment Assessment: IMPRESSION: 1. Psychosis 2. Refusal to eat 3. Nausea RECOMMENDATIONS: -Hospice evaluation pending per family request. -Will have to consider PEG tube if oral intake poor and if fails swallow evaluation and if family agrees. -For now, continue with bedside encouragement
[2018-02-03] MEDS: D5-0.45NS w/40 mEq KCL 1,000 ML IV SCH (11:27)
--- NOTE | 2018-02-03 16:22 | General Progress Note ---
Objective - Results Result Diagrams: 02/03/18 05:55 02/03/18 05:55 Recent Labs: Laboratory Last Values WBC 7.2 Th/cmm (4.8-10.8) 02/03/18 05:55 RBC 4.50 Mil/cmm (3.80-5.20) 02/03/18 05:55 Hgb 13.8 gm/dL (12-16) 02/03/18 05:55 Hct 41.3 % (41.0-60) 02/03/18 05:55 MCV 91.9 fl (81-100) 02/03/18 05:55 MCH 30.6 pg (27.0-31.0) 02/03/18 05:55 MCHC Differential 33.3 pg (28.0-36.0) 02/03/18 05:55 RDW 12.9 % (11.5-20.0) 02/03/18 05:55 Plt Count 233 Th/cmm (150-400) 02/03/18 05:55 MPV 8.9 fl 02/03/18 05:55 Neutrophils % 70.8 % (40.0-80.0) 02/03/18 05:55 Lymphocytes % 14.5 % (20.0-50.0) L 02/03/18 05:55 Monocytes % 9.4 % (2.0-10.0) 02/03/18 05:55 Eosinophils % 4.8 % (0.0-5.0) 02/03/18 05:55 Basophils % 0.5 % (0.0-2.0) 02/03/18 05:55 Sodium 133 mEq/L (136-145) L 02/03/18 05:55 Potassium 4.2 mEq/L (3.5-5.1) 02/03/18 05:55 Chloride 104 mEq/L (98-107) 02/03/18 05:55 Carbon Dioxide 23.1 mEq/L (21.0-31.0) 02/03/18 05:55 Anion Gap 10.1 (7.0-16.0) 02/03/18 05:55 BUN 12 mg/dL (7-25) 02/03/18 05:55 Creatinine 0.6 mg/dL (0.6-1.2) 02/03/18 05:55 Est GFR ( Amer) TNP 02/03/18 05:55 Est GFR (Non-Af Amer) TNP 02/03/18 05:55 BUN/Creatinine Ratio 20.0 02/03/18 05:55 Glucose 150 mg/dL (70-105) H 02/03/18 05:55 POC Glucose 137 MG/DL (70 - 105) H 01/29/18 05:20 Uric Acid 4.7 mg/dL (2.3-6.6) 01/30/18 07:40 Calcium 9.1 mg/dL (8.6-10.3) 02/03/18 05:55 Phosphorus 2.3 mg/dL (2.5-5.0) L 02/01/18 04:35 Magnesium 2.1 mg/dL (1.9-2.7) 02/01/18 04:35 Total Bilirubin 1.3 mg/dL (0.3-1.0) H 01/30/18 07:40 AST 42 U/L (13-39) H 01/30/18 07:40 ALT 30 U/L (7-52) 01/30/18 07:40 Alkaline Phosphatase 58 U/L (34-104) 01/30/18 07:40 Total Protein 6.1 gm/dL (6.0-8.3) 01/30/18 07:40 Albumin 3.3 gm/dL (3.7-5.3) L 02/03/18 05:55 Globulin 2.8 gm/dL 01/30/18 07:40 Albumin/Globulin Ratio 1.2 (1.0-1.8) 01/30/18 07:40 Prealbumin 11 mg/dL (9-32) 01/29/18 06:56 Aldosterone <1.0 ng/dL (0.0-30.0) 01/31/18 04:50 Vitamin B12 252 pg/mL (232-1245) 02/01/18 04:35 TSH 5.37 uIU/ml (0.34-5.60) 01/31/18 04:50 - Physical Exam Vitals and I&O: Vital Signs Temp 98.3 F 02/03/18 15:37 Pulse 96 02/03/18 15:37 Resp 18 02/03/18 15:37 BP 134/74 02/03/18 15:37 Pulse Ox 98 02/03/18 15:37 Intake & Output 02/02/18 02/03/18 02/03/18 18:59 06:59 18:59 Intake Total 957.5 968.75 1000 Balance 957.5 968.75 1000 Weight (lbs) 84.822 kg 85.275 kg Intake: Intake, IV Amount 957.5 968.75 1000 D5-0.45NS w/40 mEq KCL 1, 957.5 968.75 1000 000 ml @ 75 mls/hr IV . [id number] ISRA Rx#:[id number] Other: # Voids 2 # Bowel Movements 0 Weight Source Bedscale Bedscale Active Medications: Current Medications Acetaminophen (Tylenol) 650 mg PO Q4HR PRN PRN Reason: Mild Pain / Temp above 100 Stop: 03/30/18 07:45 Al Hydrox/Mg Hydrox/Simethicone (Maalox) 30 ml PO Q4HR PRN PRN Reason: GI DISTRESS Stop: 03/30/18 07:45 Potassium Chloride/Dextrose/Sod Cl (D5-0.45ns W/40 Meq Kcl) 1,000 mls @ 75 mls/ hr IV .[id number] ISRA Stop: 04/01/18 15:26 Last Admin: 02/03/18 11:27 Dose: 75 mls/hr Levothyroxine Sodium (Synthroid) 0.1 mg PO QDAC ISRA Stop: 03/30/18 08:59 Last Admin: 02/03/18 06:36 Dose: 0.1 mg Lorazepam (Ativan) 0.25 mg PO Q8HR PRN; Protocol PRN Reason: Agitation Stop: 03/30/18 07:45 Last Admin: 01/31/18 08:47 Dose: 0.25 mg Magnesium Hydroxide (Milk Of Magnesia) 30 ml PO HS PRN PRN Reason: Constipation Stop: 03/30/18 07:45 Last Admin: 02/02/18 20:30 Dose: 30 ml Metoclopramide HCl (Reglan) 5 mg IVP Q8HR ISRA Stop: 03/30/18 12:59 Last Admin: 02/03/18 12:19 Dose: 5 mg Mirtazapine (Remeron) 7.5 mg PO HS ISRA; Protocol Stop: 03/30/18 20:59 Last Admin: 02/02/18 20:23 Dose: 7.5 mg Multivitamins/Vitamin C (Theragran) 1 tab PO DAILY ISRA Stop: 03/30/18 08:59 Last Admin: 02/03/18 08:46 Dose: 1 tab Quetiapine Fumarate (Seroquel) 50 mg PO BID ISRA; Protocol Stop: 03/30/18 08:59 Last Admin: 02/03/18 08:46 Dose: 50 mg Zolpidem Tartrate (Ambien) 5 mg PO HS PRN PRN Reason: Insomnia Stop: 03/30/18 07:45 General: No acute distress HEENT: Atraumatic Neck: Supple Cardiovascular: Regular rate Lungs: Clear to auscultation Abdomen: Bowel sounds, Soft, no Tender, no Distended Extremities: no Edema Neurological: Sensation intact Skin: no Rash Psych/Mental Status: Mood NL Nutritional Asmnt/Malnutr-PDOC - Dietary Evaluation Malnutrition Findings (Please click <Entered> for more info): Nutritional Asmnt/Malnutrition Start: 01/29/18 13: 31 Text: Status: Complete Freq: Protocol: Document 01/29/18 13:31 ELOISA (Rec: 01/29/18 13:36 ELOISA [email or web address]) Nutritional Asmnt/Malnutrition Patient General Information Diagnosis failure to thrive, Pertinent Medical Hx/Surgical Hx no H&P completed as of 01/29 @ 1331 Subjective Information Pt sitting up in bed did not answer RD questions at time of visit Current Diet Order/ Nutrition Support regular Pertinent Medications maalox, D51/2NS @100ml/hr (2. 4L/day 408kcals/day), synthroid, MOM, theragran Pertinent Labs 01/29: Na 142, K 3.4, Cl 111, CO2 24.2, BUN 20, Cr 0.7, Ca 9 .0 Nutritional Hx/Data Height 1.63 m Height (Calculated Centimeters) 162.6 Current Weight (lbs) 80.286 kg Weight (Calculated Kilograms) 80.3 Weight (Calculated Grams) 70435.8 Body Mass Index (BMI) 30.4 Weight Status Obese GI Symptoms GI Symptoms None Cultural/Ethnic/Jewish Belief unknown Usual diet at home regular Skin Integrity/Comment: diaz score 15 Estimated Nutritional Goals BEE in Kcals: Using Current wt Calories/Kcals/Kg 25-28kcals/kg Kcals Calculated 1999-0kcals/day Protein: Using Current wt Protein g/kg/kg Protein Calculated 80g/day Fluid: ml per MD Nutritional Problem 1. Problem Problem No nutrition diagnosis at this time Intervention/Recommendation Comments Recommend continuing Regular diet Consider appetite stimulant to help with PO intake Recommend if PO intake continues to be low, NGT placement for enteral nutrition Expected Outcomes/Goals Expected Outcomes/Goals PO Intake >75% of meals
--- NOTE | 2018-02-03 22:33 | Progress Notes ---
DATE: 02/03/2018 Case was discussed with staff of the patient and reviewed records. The patient continues to have poor insight, continues to be unable to make safe plan for self-care. The staff reports she does not eat, though she tell me if I bring her here, she will eat. She continues to be unable to make safe plan for self-care, cannot live on her own. The patient needs to go to a nursing facility to help take care of her. The patient is unpredictable, impulsive, confused, unable to state a safe plan for self-care and we will continue outpatient group therapy, milieu therapy, and adjust medications as needed. JOB# [id number]
[2018-02-04] MEDS: D5-0.45NS w/40 mEq KCL 1,000 ML IV SCH (01:03)
[2018-02-04] MEDS: Metoclopramide 5 mg/mL 2mL Vial IVP SCH ×2 (05:28→12:04)
[2018-02-04] MEDS: Levothyroxine 0.1 Mg Tab PO SCH (06:48)
[2018-02-04] MEDS: Multivitamin Tab PO SCH (09:25)
--- NOTE | 2018-02-04 11:44 | GI Progress Note ---
Subjective - Review of Systems Service Date: 02/04/18 Subjective: EVENTS NOTED. NOT EATING MUCH. PASSED SWALLOW EVAL. Objective - Results Result Diagrams: 02/03/18 05:55 02/03/18 05:55 Recent Labs: Laboratory Last Values WBC 7.2 Th/cmm (4.8-10.8) 02/03/18 05:55 RBC 4.50 Mil/cmm (3.80-5.20) 02/03/18 05:55 Hgb 13.8 gm/dL (12-16) 02/03/18 05:55 Hct 41.3 % (41.0-60) 02/03/18 05:55 MCV 91.9 fl (81-100) 02/03/18 05:55 MCH 30.6 pg (27.0-31.0) 02/03/18 05:55 MCHC Differential 33.3 pg (28.0-36.0) 02/03/18 05:55 RDW 12.9 % (11.5-20.0) 02/03/18 05:55 Plt Count 233 Th/cmm (150-400) 02/03/18 05:55 MPV 8.9 fl 02/03/18 05:55 Neutrophils % 70.8 % (40.0-80.0) 02/03/18 05:55 Lymphocytes % 14.5 % (20.0-50.0) L 02/03/18 05:55 Monocytes % 9.4 % (2.0-10.0) 02/03/18 05:55 Eosinophils % 4.8 % (0.0-5.0) 02/03/18 05:55 Basophils % 0.5 % (0.0-2.0) 02/03/18 05:55 Sodium 133 mEq/L (136-145) L 02/03/18 05:55 Potassium 4.2 mEq/L (3.5-5.1) 02/03/18 05:55 Chloride 104 mEq/L (98-107) 02/03/18 05:55 Carbon Dioxide 23.1 mEq/L (21.0-31.0) 02/03/18 05:55 Anion Gap 10.1 (7.0-16.0) 02/03/18 05:55 BUN 12 mg/dL (7-25) 02/03/18 05:55 Creatinine 0.6 mg/dL (0.6-1.2) 02/03/18 05:55 Est GFR ( Amer) TNP 02/03/18 05:55 Est GFR (Non-Af Amer) TNP 02/03/18 05:55 BUN/Creatinine Ratio 20.0 02/03/18 05:55 Glucose 150 mg/dL (70-105) H 02/03/18 05:55 POC Glucose 137 MG/DL (70 - 105) H 01/29/18 05:20 Uric Acid 4.7 mg/dL (2.3-6.6) 01/30/18 07:40 Calcium 9.1 mg/dL (8.6-10.3) 02/03/18 05:55 Phosphorus 2.3 mg/dL (2.5-5.0) L 02/01/18 04:35 Magnesium 2.1 mg/dL (1.9-2.7) 02/01/18 04:35 Total Bilirubin 1.3 mg/dL (0.3-1.0) H 01/30/18 07:40 AST 42 U/L (13-39) H 01/30/18 07:40 ALT 30 U/L (7-52) 01/30/18 07:40 Alkaline Phosphatase 58 U/L (34-104) 01/30/18 07:40 Total Protein 6.1 gm/dL (6.0-8.3) 01/30/18 07:40 Albumin 3.3 gm/dL (3.7-5.3) L 02/03/18 05:55 Globulin 2.8 gm/dL 01/30/18 07:40 Albumin/Globulin Ratio 1.2 (1.0-1.8) 01/30/18 07:40 Prealbumin 11 mg/dL (9-32) 01/29/18 06:56 Aldosterone <1.0 ng/dL (0.0-30.0) 01/31/18 04:50 Vitamin B12 252 pg/mL (232-1245) 02/01/18 04:35 TSH 5.37 uIU/ml (0.34-5.60) 01/31/18 04:50 - Physical Exam Vitals and I&O: Vital Signs Temp 97.2 F 02/04/18 09:00 Pulse 87 08/17/18 09:00 Resp 19 02/04/18 09:00 BP 155/83 02/04/18 09:00 Pulse Ox 97 02/04/18 09:00 Intake & Output 02/03/18 02/04/18 02/04/18 18:59 06:59 18:59 Intake Total 1000 1100 Balance 1000 1100 Weight (lbs) 85.275 kg 84.822 kg Intake: Intake, IV Amount 1000 1000 D5-0.45NS w/40 mEq KCL 1, 1000 1000 000 ml @ 75 mls/hr IV . [id number] ISRA Rx#:[id number] Oral 100 Other: # Voids 3 Weight Source Bedscale Bedscale Active Medications: Current Medications Acetaminophen (Tylenol) 650 mg PO Q4HR PRN PRN Reason: Mild Pain / Temp above 100 Stop: 03/30/18 07:45 Al Hydrox/Mg Hydrox/Simethicone (Maalox) 30 ml PO Q4HR PRN PRN Reason: GI DISTRESS Stop: 03/30/18 07:45 Potassium Chloride/Dextrose/Sod Cl (D5-0.45ns W/40 Meq Kcl) 1,000 mls @ 75 mls/ hr IV .[id number] ISRA Stop: 04/01/18 15:26 Last Admin: 02/04/18 01:03 Dose: 75 mls/hr Levothyroxine Sodium (Synthroid) 0.1 mg PO QDAC ISRA Stop: 03/30/18 08:59 Last Admin: 02/04/18 06:48 Dose: Not Given Lorazepam (Ativan) 0.25 mg PO Q8HR PRN; Protocol PRN Reason: Agitation Stop: 03/30/18 07:45 Last Admin: 01/31/18 08:47 Dose: 0.25 mg Magnesium Hydroxide (Milk Of Magnesia) 30 ml PO HS PRN PRN Reason: Constipation Stop: 03/30/18 07:45 Last Admin: 02/02/18 20:30 Dose: 30 ml Metoclopramide HCl (Reglan) 5 mg IVP Q8HR ISRA Stop: 03/30/18 12:59 Last Admin: 02/04/18 05:28 Dose: 5 mg Mirtazapine (Remeron) 7.5 mg PO HS ISRA; Protocol Stop: 03/30/18 20:59 Last Admin: 02/03/18 20:23 Dose: 7.5 mg Multivitamins/Vitamin C (Theragran) 1 tab PO DAILY ISRA Stop: 03/30/18 08:59 Last Admin: 02/04/18 09:25 Dose: Not Given Quetiapine Fumarate (Seroquel) 50 mg PO BID ISRA; Protocol Stop: 03/30/18 08:59 Last Admin: 02/04/18 09:25 Dose: Not Given Zolpidem Tartrate (Ambien) 5 mg PO HS PRN PRN Reason: Insomnia Stop: 03/30/18 07:45 General: No acute distress HEENT: Atraumatic Neck: Supple Cardiovascular: Regular rate Lungs: Clear to auscultation Abdomen: Bowel sounds, Soft, no Tender, no Distended Extremities: no Edema Neurological: Sensation intact Skin: no Rash Psych/Mental Status: Mood NL Assessment/Plan - Assessment Assessment: IMPRESSION: 1. Psychosis 2. Refusal to eat 3. Nausea RECOMMENDATIONS: -Hospice evaluation pending per family request. -Consider PEG tube if oral intake poor and if family agrees. -Encourage oral intake with supplements for now. WILL SEE PATIENT NEEDED. PLEASE CALL US IF QUESTIONS.
[2018-02-04] MEDS ORDERED: D5-0.9%NS 1,000 ML IV SCH (12:00)
--- NOTE | 2018-02-05 02:03 | Progress Notes ---
DATE: 02/04/2018 Case was discussed with staff of the patient, reviewed records. The patient is alert; however, she is unable to participate in a meaningful conversation or make safe plan for self-care. The staff reports she is eating, though when I asked her, she said she will eat. She is still confused, unable to make safe plan for self-care. The patient can take care of herself at a lower level of care. Unable to make safe plan for self-care. I would recommend to continue her medication. The patient needs to go to a SNF facility to help take care of her. No side effects with the medication, no sedation or nausea. Thank you very much for allowing me to participate in the care of this most interesting lady. JOB# [id number]
== END 2018-02-04 17:29 | DRG 641 ==
LOC: MSI 23:00
PROVIDERS: ADMIT Internal Medicine; ATTEND Internal Medicine
DX: E87.6 Hypokalemia (principal); R62.7 Adult failure to thrive; I10 Essential (primary) hypertension; E03.9 Hypothyroidism, unspecified; M19.90 Unspecified osteoarthritis, unspecified site; F29 Unspecified psychosis not due to a substance or known physiological condition; E83.42 Hypomagnesemia; F32.9 Major depressive disorder, single episode, unspecified; F03.90 Unspecified dementia, unspecified severity, without behavioral disturbance, psychotic disturbance, mood disturbance, and anxiety
CPT/HCPCS: 36415-UA; 74000-TC; 76770-TC; 80048-TC; 80053-TC; 82040-TC; 82088-90; 82607-90; 82948-90; 83735-TC; 84100-TC; 84134-90; 84443-TC; 84550-TC; 85025-TC; 97530; J2001; J2765; J3475; J3480; J7042; X3401; X3904; Z7610